=== PATIENT | female | born 1965 | race Caucasian/White ===

== ENCOUNTER 2016-05-19 16:53 | Observation (INO) | payer OTHER ==
[~2016-05-19] VITALS: Ht 170.2 cm; Wt 56.4 kg
[~2016-05-19 16:53] MED LIST: ATEN-100 PO; FIORIC PO; PROM25TA5 PO
[2016-05-19 17:00] VITALS: BP 138/92; PULSE 54; RESP 16; TEMP 98.8; O2SAT 97
[2016-05-19] MEDS ORDERED: SODIUM CHLOR 0.9% 1000 ML INJ 1,000 ML IV ONE (17:15)
[2016-05-19] MEDS ORDERED: SODIUM CHLORIDE 0.9% FLUSH 5 ML FLUSH IVF PRN (17:15)
[2016-05-19] MEDS ORDERED: ATEN25TA PO (17:26)
--- NOTE | 2016-05-19 17:28 | PD ---
HPI Chief Complaint: Numbness/Tingling Time Seen by Provider: 17:04 Travel History International Travel<30 days: No Contact w/Intl Traveler<30days: No History of Present Illness HPI Patient is a 51-year-old female who presents to emergency room with complaints of tingling sensation and numbness to her left upper extremity. Reports that onset of symptoms was 2 hours prior to arrival to the emergency room. Patient reports that she was riding her bicycle today, reports that the sudden she felt lightheaded and dizzy. Reports that she began to have increased tingling and numbness to her left arm. Reports that she felt these symptoms go into her neck as well. Reports concern that she may be having a stroke. Patient reports that upon arrival to the emergency room, symptoms have improved and has almost nearly resolved. Reports no history of CVA, TIA in the past. Denies history of hypertension, hyperlipidemia or diabetes. Reports that she does have history of a complicated migraine which he her tingling to her right upper extremity in the past. patient denies fall or trauma to the head or neck. Patient denies chest pain or shortness of breath at this time. PFSH Past Medical History Cardiovascular Problems: Yes (IRREGULAR HEART RATE SPORADICALLY) Diminished Hearing: No Headaches: Yes Past Surgical History Surgical History: No Previous Surgery Family History Family History: Negative Social History Alcohol Use: No Tobacco Use: No Substance Use: No Allergies-Medications (Allergen,Severity, Reaction): Coded Allergies: No Known Allergies (Unverified , 05/19/16) Reported Meds & Prescriptions Reported Meds & Active Scripts Active Reported Atenolol 25 Mg Tab 25 Mg PO DAILY Review of Systems General / Constitutional: No: Fever Eyes: No: Visual changes HENT: No: Headaches Cardiovascular: No: Chest Pain or Discomfort Respiratory: No: Shortness of Breath Gastrointestinal: No: Abdominal Pain Genitourinary: No: Dysuria Musculoskeletal: No: Pain Skin: No Rash Neurologic: Positive: Weakness, Paresthesia Psychiatric: No: Depression Endocrine: No: Polydipsia Hematologic/Lymphatic: No: Easy Bruising Physical Exam Narrative GENERAL: nad,nontoxic SKIN: Warm and dry. HEAD: Atraumatic. Normocephalic. EYES: Pupils equal and round. No scleral icterus. No injection or drainage. ENT: No nasal bleeding or discharge. Mucous membranes pink and moist. NECK: Trachea midline. No JVD. CARDIOVASCULAR: Regular rate and rhythm. No murmur appreciated. RESPIRATORY: No accessory muscle use. Clear to auscultation. Breath sounds equal bilaterally. GASTROINTESTINAL: Abdomen soft, non-tender, nondistended. Hepatic and splenic margins not palpable. MUSCULOSKELETAL: No obvious deformities. No clubbing. No cyanosis. No edema. NEUROLOGICAL: Awake and alert. No obvious cranial nerve deficits. Motor grossly within normal limits. Normal speech. Cranial nerves to 1-12 grossly intact with no neurovascular deficits. PSYCHIATRIC: Appropriate mood and affect; insight and judgment normal. Data Data Last Documented VS Vital Signs Date Time Temp Pulse Resp B/P Pulse Ox O2 Delivery O2 Flow Rate FiO2 05/19/16 17:57 52 16 167/72 98 Room Air 05/19/16 17:00 98.8 Orders Prothrombin Time / Inr (Pt) (05/19/16 17:05) Act Partial Throm Time (Ptt) (05/19/16 17:05) Complete Blood Count With Diff (05/19/16 17:05) Comprehensive Metabolic Panel (05/19/16 17:05) Creatine Kinase (Cpk) (05/19/16 17:05) Troponin I (05/19/16 17:05) Urinalysis - C+S If Indicated (05/19/16 17:05) Ct Brain W/O Iv Contrast(Rout) (05/19/16 17:05) Chest, Single Ap (05/19/16 17:05) Ecg Monitoring (05/19/16 17:05) Iv Access Insert/Monitor (05/19/16 17:05) Oximetry (05/19/16 17:05) Sodium Chloride 0.9% Flush (Ns Flush) (05/19/16 17:15) Sodium Chlor 0.9% 1000 Ml Inj (Ns 1000 M (05/19/16 17:15) Aspirin (Aspirin) (05/19/16 18:30) Labs Laboratory Tests Test 05/19/16 17:25 White Blood Count 10.6 TH/MM3 Red Blood Count 6.00 MIL/MM3 Hemoglobin 16.7 GM/DL Hematocrit 51.9 % Mean Corpuscular Volume 86.5 FL Mean Corpuscular Hemoglobin 27.9 PG Mean Corpuscular Hemoglobin 32.2 % Concent Red Cell Distribution Width 13.9 % Platelet Count 227 TH/MM3 Mean Platelet Volume 7.2 FL Neutrophils (%) (Auto) 89.0 % Lymphocytes (%) (Auto) 6.9 % Monocytes (%) (Auto) 1.5 % Eosinophils (%) (Auto) 0.3 % Basophils (%) (Auto) 2.3 % Neutrophils # (Auto) 9.5 TH/MM3 Lymphocytes # (Auto) 0.7 TH/MM3 Monocytes # (Auto) 0.2 TH/MM3 Eosinophils # (Auto) 0.0 TH/MM3 Basophils # (Auto) 0.2 TH/MM3 CBC Comment DIFF FINAL Differential Comment Prothrombin Time 11.1 SEC Prothromb Time International 1.0 RATIO Ratio Activated Partial 30.0 SEC Thromboplast Time Urine Color YELLOW Urine Turbidity CLEAR Urine pH 6.0 Urine Specific [place] 1.013 Urine Protein NEG mg/dL Urine Glucose (UA) NEG mg/dL Urine Ketones NEG mg/dL Urine Occult Blood MOD Urine Nitrite NEG Urine Bilirubin NEG Urine Leukocyte Esterase NEG Urine RBC 4-9 /hpf Urine Squamous Epithelial 0-5 /hpf Cells Urine Mucus OCC /lpf Microscopic Urinalysis Comment CULT NOT INDICATED Sodium Level 134 MEQ/L Potassium Level 3.7 MEQ/L Chloride Level 100 MEQ/L Carbon Dioxide Level 27.1 MEQ/L Anion Gap 7 MEQ/L Blood Urea Nitrogen 10 MG/DL Creatinine 0.96 MG/DL Estimat Glomerular Filtration 61 ML/MIN Rate Random Glucose 89 MG/DL Calcium Level 8.8 MG/DL Total Bilirubin 0.6 MG/DL Aspartate Amino Transf 20 U/L (AST/SGOT) Alanine Aminotransferase 22 U/L (ALT/SGPT) Alkaline Phosphatase 92 U/L Total Creatine Kinase 65 U/L Troponin I LESS THAN 0.02 NG/ML Total Protein 7.8 GM/DL Albumin 4.2 GM/DL [facility] Medical Decision Making Medical Screen Exam Complete: Yes Emergency Medical Condition: Yes Interpretation(s) EKG at 1655: sinus sim at 54bpm, qt/qtc: 442/432, no acute st or t wave changes Differential Diagnosis CVA, TIA, arrhythmia, ACS, electrolyte abnormality Narrative Course Patient is a 51-year-old female who presents to emergency room with complaints of numbness continuous her left arm which started 2 hours prior to arrival to the emergency room. Patient reports that she was riding her bike when her symptoms began. She with no history of CVA or TIA in the past. Upon presentation to the emergency room, EKG obtained, patient was placed on a general ii farmworker, and NIH scale obtained. Patient with NIH scale of 0. Patient with rapidly resolving symptoms at this time. Plan to obtain ct of head and work patient up for possible TIA. Physician Communication Physician Communication case reviewed with Dr Barnes who accepts pt to service Diagnosis Primary Impression: TIA (transient ischemic attack) Qualified Code: G45.9 - Transient cerebral ischemia, unspecified type Admitting Information Admitting Physician Requests: Observation Malina Rodriguez DO May 19, 2016 17:28
--- NOTE | 2016-05-19 17:30 | RADHPO ---
EXAM DATE/TIME: 05/19/2016 17:18 [facility] COMPARISON: No previous studies available for comparison. INDICATIONS : Syncope with chest pains. MEDICAL HISTORY : Irregular heart beat. SURGICAL HISTORY : None. ENCOUNTER: Initial ACUITY: 1 day PAIN SCORE: 0/10 LOCATION: Bilateral chest FINDINGS: The cardiac silhouette is enlarged in transverse diameter. The lungs are free of acute parenchymal op acity. No effusions are identified. Osseous structures are intact. CONCLUSION: Cardiomegaly. No acute cardiopulmonary disease. Loc Hermosillo MD on May 19, 2016 at 17:29 Board Certified Radiologist. This report was verified electronically.
[2016-05-19 17:39] VITALS: RESP 16; O2SAT 100
[2016-05-19 17:44] LABS: AUTOMATED NEUTROPHIL # 9.5 TH/MM3 (1.8-7.7); BASOPHIL # 0.2 TH/MM3 (0-0.2); BASOPHIL % 2.3 % (0.0-2.0); EOSINOPHIL % 0.3 % (0.0-4.0); GLUCOSE,URINE NEG (NEG); HEMATOCRIT 51.9 % (35.0-46.0); HEMO FLAGS DIFF FINAL; KETONE, URINE NEG (NEG); LYMPH % 6.9 % (9.0-44.0); LYMPHOCYTE # 0.7 TH/MM3 (1.0-4.8); MEAN CELL VOLUME 86.5 FL (80.0-100.0); MEAN CORPUSCULAR HEMOGLOBIN 27.9 PG (27.0-34.0); MEAN CORPUSCULAR HGB CONC 32.2 % (32.0-36.0); MONO % 1.5 % (0.0-8.0); NITRITE,URINE NEG (NEG); PLATELET COUNT 227 TH/MM3 (150-450); RED CELL DISTRIBUTION WIDTH 13.9 % (11.6-17.2); WHITE BLOOD COUNT 10.6 TH/MM3 (4.0-11.0)
[2016-05-19 17:50] LABS: CHLORIDE 100 MEQ/L (98-107); POTASSIUM 3.7 MEQ/L (3.5-5.1); SODIUM (NA) 134 MEQ/L (136-145)
[2016-05-19 17:54] LABS: ANION GAP 7 MEQ/L (5-15); BICARBONATE 27.1 MEQ/L (21.0-32.0); BLOOD UREA NITROGEN 10 MG/DL (7-18)
[2016-05-19 17:55] LABS: BLOOD, URINE MOD (NEG)
[2016-05-19 17:56] LABS: PROTHROMBIN TIME - PATIENT 11.1 SEC (9.8-11.6)
--- NOTE | 2016-05-19 17:56 | RADHPO ---
EXAM DATE/TIME: 05/19/2016 17:38 [facility] COMPARISON: CT BRAIN W/O CONTRAST, October 30, 2014, 17:35. INDICATIONS : Evaluate for tranischemic attack. Tingling left arm. RADIATION DOSE: 60.00 CTDIvol (mGy) MEDICAL HISTORY : None SURGICAL HISTORY : None. ENCOUNTER: Initial ACUITY: 1 day PAIN SCALE: 0/10 LOCATION: cranial TECHNIQUE: Multiple contiguous axial images were obtained of the head. Using automated exposure control and adj ustment of the mA and/or kV according to patient size, radiation dose was kept as low as reasonably a chievable to obtain optimal diagnostic quality images. FINDINGS: CEREBRUM: The ventricles are normal for age. No evidence of midline shift, mass lesion, hemorrhage or acute in farction. No extra-axial fluid collections are seen. POSTERIOR FOSSA: The cerebellum and brainstem are intact. The 4th ventricle is midline. The cerebellopontine angle i s unremarkable. EXTRACRANIAL: The visualized portion of the orbits is intact. SKULL: The calvaria is intact. No evidence of skull fracture. CONCLUSION: 1. No evidence of acute intracranial pathology. No masses are identified. Loc Hermosillo MD on May 19, 2016 at 17:54 Board Certified Radiologist. This report was verified electronically.
[2016-05-19 17:57] VITALS: BP 167/72; PULSE 52; RESP 16; O2SAT 98
[2016-05-19 17:57] LABS: ALT (GPT) 22 U/L (10-53); AST (GOT) 20 U/L (15-37); GLOMERULAR FILTRATION RATE 61 ML/MIN (>89)
[2016-05-19 17:59] LABS: TOTAL BILIRUBIN ADULT 0.6 MG/DL (0.2-1.0)
[2016-05-19 18:00] LABS: ALKALINE PHOSPHATASE 92 U/L (45-117)
[2016-05-19 18:07] LABS: URINE COLOR YELLOW (YELLW/STRAW)
[2016-05-19 18:09] LABS: CREATINE KINASE 65 U/L (26-192); MUCUS URINE OCC /lpf (OCC); SQUAMOUS EPITHELIAL CELL URINE 0-5 /hpf (0-5)
[2016-05-19 18:10] LABS: COMMENT (UR) CULT NOT INDICATED; CULTURE IF INDICATED CULT NOT INDICATED
[2016-05-19] MEDS ORDERED: ASPIRIN 325 MG TAB PO ONE (18:30)
[2016-05-19] MEDS ORDERED: ONDANSETRON HCL 4 MG/2 ML VIAL IVP PRN (18:45)
[2016-05-19] MEDS ORDERED: SODIUM CHLORIDE 0.9% FLUSH 5 ML FLUSH FLUSH PRN (18:45)
[2016-05-19] MEDS ORDERED: ACETAMINOPHEN 325 MG TAB PO PRN (18:45)
[2016-05-19 20:14] VITALS: BP 157/73; PULSE 52; RESP 16; O2SAT 97
[2016-05-19 21:00] VITALS: BP 160/88; PULSE 54; RESP 20; TEMP 99.1; O2SAT 98
[2016-05-19] MEDS: SODIUM CHLORIDE 0.9% FLUSH 5 ML FLUSH FLUSH SCH (21:17)
[2016-05-20] VITALS: BP 168/88; PULSE 59; RESP 20; TEMP 98.5; O2SAT 98
[2016-05-20 04:00] VITALS: BP 160/96; PULSE 56; RESP 20; TEMP 96.8; O2SAT 98
[2016-05-20 08:00] VITALS: BP 159/90; PULSE 61; RESP 18; TEMP 98.1; O2SAT 95
[2016-05-20] MEDS: SODIUM CHLORIDE 0.9% FLUSH 5 ML FLUSH FLUSH SCH (09:09)
--- NOTE | 2016-05-20 09:56 | RADHPO ---
EXAM DATE/TIME: 05/20/2016 07:41 [facility] COMPARISON: No previous studies available for comparison. INDICATIONS : Transient ischemic attack. MEDICAL HISTORY : Headache. Arrhythmia. SURGICAL HISTORY : None. ENCOUNTER: Initial ACUITY: 1 day PAIN SCORE: 0/10 LOCATION: Bilateral neck PEAK SYSTOLIC VELOCITIES (cm/sec): ICA/CCA RATIO: Right: 1.8 Left: 1.2 ICA: Right: 112 Left: 72 CCA: Right: 63 Left: 60 ECA: Right: 62 Left: 66 VERTEBRAL: Right: 43 antegrade Left: 43 antegrade Elevated flow velocities and ICA/CCA ratios have been found to correlate with increased degrees of vessel stenosis, calculated as percentage of diameter relative to a normal segment of distal ICA/CCA FINDINGS: RIGHT CAROTID: There is no evidence for a hemodynamically significant carotid stenosis. Minimal int imal hyperplasia is present with scattered calcific plaque. LEFT CAROTID: There is no evidence for a hemodynamically significant carotid stenosis. Minimal inti mal hyperplasia is present with scattered calcific plaque. VERTEBRAL ARTERIES: Flow is antegrade in both vertebral arteries. MISCELLANEOUS: There are no ancillary masses or adenopathy. CONCLUSION: Negative examination for a hemodynamically significant carotid stenosis. Marvin Brandt MD FACR Board Certified Radiologist. This report was verified electronically.
[2016-05-20] MEDS ORDERED: ATENOLOL 25 MG TAB PO SCH (10:00)
[2016-05-20 12:00] VITALS: BP 164/91; PULSE 50; RESP 18; TEMP 98.9; O2SAT 96
--- NOTE | 2016-05-20 13:44 | RADHPO ---
EXAM DATE/TIME: 05/20/2016 12:57 [facility] COMPARISON: No previous studies available for comparison. INDICATIONS : TIA. Dizziness, tingling sensation and numbness to left upper extremity. MEDICAL HISTORY : Irregular heartbeat. SURGICAL HISTORY : None. ENCOUNTER: Subsequent ACUITY: 2 day PAIN SCORE: 0/10 LOCATION: cranial TECHNIQUE: Multiplanar, multisequence MRI of the brain was performed without contrast. FINDINGS: Moderate periventricular white matter changes are evident. There is no restricted diffusion to suggest an infarct. There are no extraaxial fluid collections appreciated. Posterior fossa is unremarkable. Ventricular sizes are appropriate. CONCLUSION: 1. Marked periventricular white matter changes. 2. There is no restricted diffusion to suggest an ischemic event. Marvin Brandt MD FACR on May 20, 2016 at 13:37 Board Certified Radiologist. This report was verified electronically.
[2016-05-20] MEDS ORDERED: LISINOPRIL 10 MG TAB PO SCH (14:00)
[2016-05-20] MEDS ORDERED: LISI10TA3 PO (14:03)
--- NOTE | 2016-05-20 14:16 | HHI.DCPOC ---
Discharge Care Plan Diagnosis: (1) Neurologic abnormality Goals to Promote Your Health * To prevent worsening of your condition and complications * To maintain your health at the optimal level Directions to Meet Your Goals Take your medications as prescribed Follow your dietary instruction Follow activity as directed Keep your appointments as scheduled Take your immunizations and boosters as scheduled If your symptoms worsen call your PCP, if no PCP go to Urgent Care Center or Emergency Room Smoking is Dangerous to Your Health. Avoid second hand smoke Call the 24-hour hour crisis hotline for domestic abuse at Lorraine Barnes MD May 20, 2016 14:16
--- NOTE | 2016-05-20 14:16 | HHI.HP ---
[facility] [place] Primary Care Physician No Primary Care Physician Admission Diagnosis TIA Diagnoses: Chief Complaint: Numbness and tingling Travel History International Travel<30 Days: No Contact w/Intl Traveler <30 Da: No Traveled to Known Affected Are: No History of Present Illness Patient is a 51-year-old female who is very active and rides her bike 2-3 miles a day as well as walks. Yesterday she came to the emergency room after experiencing acute onset of left arm numbness and paresthesias. This resolved quite quickly however patient was concerned that she was having a stroke and came to the hospital. Since her admission she has had multiple imaging studies which are negative for any acute stroke. She does have ever had a history of migraines and thought she may have been having a migraine attack. Patient notes that she takes Excedrin at times for her migraines and has typical aura. This event was not associated with aura but resolved with Excedrin at home. Patient also has elevated blood pressure. She does take atenolol however this is been for palpitations in the past. Her blood pressure has been elevated here and lisinopril was added to her atenolol. Patient has been doing well and her symptoms are resolved. There is no evidence of infarct the patient will be discharged home Review of Systems Constitutional: DENIES: Diaphoretic episodes, Fatigue, Fever, Weight gain, Weight loss, Chills, Dizziness, Change in appetite, Night Sweats Endocrine: DENIES: Abnorml menstrual pattern, Heat/cold intolerance, Polydipsia , Polyuria, Polyphagia Eyes: DENIES: Blurred vision, Diplopia, Eye inflammation, Eye pain, Vision loss , Photosensitivity, Double Vision Ears, nose, mouth, throat: DENIES: Tinnitus, Hearing loss, Vertigo, Nasal discharge, Oral lesions, Throat pain, Hoarseness, Ear Pain, Running Nose, Epistaxis, Sinus Pain, Toothache, Odynophagia Respiratory: DENIES: Apneas, Cough, Snoring, Wheezing, Hemoptysis, Sputum production, Shortness of breath Cardiovascular: DENIES: Chest pain, Palpitations, Syncope, Dyspnea on Exertion , PND, Lower Extremity Edema, Orthopnea, Claudication Gastrointestinal: DENIES: Abdominal pain, Black stools, Bloody stools, Constipation, Diarrhea, Nausea, Vomiting, Difficulty Swallowing, Anorexia Genitourinary: DENIES: Abnormal vaginal bleeding, Dysmenorrhea, Dyspareunia, Sexual dysfunction, Urinary frequency, Urinary incontinence, Urgency, Hematuria , Dysuria, Nocturia, Vaginal discharge Musculoskeletal: DENIES: Joint pain, Muscle aches, Stiffness, Joint Swelling, Back pain, Neck pain Integumentary: DENIES: Abnormal pigmentation, Pruritus, Rash, Nail changes, Breast masses, Breast skin changes, Nipple discharge Hematologic/lymphatic: DENIES: Bruising, Lymphadenopathy Immunologic/allergic: DENIES: Eczema, Urticaria Neurologic: COMPLAINS OF: Paresthesias, DENIES: Abnormal gait, Headache, Localized weakness, Seizures, Speech Problems, Tremor, Poor Balance Psychiatric: DENIES: Anxiety, Confusion, Mood changes, Depression, Hallucinations, Agitation, Suicidal Ideation, Homicidal Ideation, Delusions Past Family Social History Past Medical History palpations migraines Past Surgical History none Reported Medications atenolol Allergies: Coded Allergies: No Known Allergies (Unverified , 05/19/16) Active Ordered Medications Reviewed in the medical record Family History Mother at 39 from COPD, father had hypertension and from motor vehicle accident Social History No tobacco or alcohol Lives with her family Physical Exam Vital Signs Vital Signs Date Time Temp Pulse Resp B/P Pulse Ox O2 Delivery O2 Flow Rate FiO2 05/20/16 08:00 98.1 61 18 159/90 95 05/20/16 04:00 96.8 56 20 160/96 98 05/20/16 00:00 98.5 59 20 168/88 98 Automatic Cuff 05/19/16 21:00 99.1 54 20 160/88 98 05/19/16 20:14 52 16 157/73 97 Room Air 05/19/16 17:57 52 16 167/72 98 Room Air 05/19/16 17:39 16 100 Room Air 05/19/16 17:00 98.8 54 16 138/92 97 Physical Exam GENERAL: This is a well-nourished, well-developed patient, in no apparent distress. SKIN: No rashes, ecchymoses or lesions. Cool and dry. HEAD: Atraumatic. Normocephalic. No temporal or scalp tenderness. EYES: Pupils equal round and reactive. Extraocular motions intact. No scleral icterus. No injection or drainage. ENT: Nose without bleeding, purulent drainage or septal hematoma. Throat without erythema, tonsillar hypertrophy or exudate. Uvula midline. Airway patent. NECK: Trachea midline. No JVD or lymphadenopathy. Supple, nontender, no meningeal signs. CARDIOVASCULAR: Regular rate and rhythm without murmurs, gallops, or rubs. RESPIRATORY: Clear to auscultation. Breath sounds equal bilaterally. No wheezes , rales, or rhonchi. GASTROINTESTINAL: Abdomen soft, non-tender, nondistended. No hepato-splenomegaly , or palpable masses. No guarding. MUSCULOSKELETAL: Extremities without clubbing, cyanosis, or edema. No joint tenderness, effusion, or edema noted. No calf tenderness. Negative Homans sign bilaterally. NEUROLOGICAL: Awake and alert. Cranial nerves II through XII intact. Motor and sensory grossly within normal limits. Five out of 5 muscle strength in all muscle groups. Normal speech. Laboratory Laboratory Tests Test 05/19/16 17:25 White Blood Count 10.6 Red Blood Count 6.00 Hemoglobin 16.7 Hematocrit 51.9 Mean Corpuscular Volume 86.5 Mean Corpuscular Hemoglobin 27.9 Mean Corpuscular Hemoglobin 32.2 Concent Red Cell Distribution Width 13.9 Platelet Count 227 Mean Platelet Volume 7.2 Neutrophils (%) (Auto) 89.0 Lymphocytes (%) (Auto) 6.9 Monocytes (%) (Auto) 1.5 Eosinophils (%) (Auto) 0.3 Basophils (%) (Auto) 2.3 Neutrophils # (Auto) 9.5 Lymphocytes # (Auto) 0.7 Monocytes # (Auto) 0.2 Eosinophils # (Auto) 0.0 Basophils # (Auto) 0.2 CBC Comment DIFF FINAL Differential Comment Prothrombin Time 11.1 Prothromb Time International 1.0 Ratio Activated Partial 30.0 Thromboplast Time Urine Color YELLOW Urine Turbidity CLEAR Urine pH 6.0 Urine Specific [place] 1.013 Urine Protein NEG Urine Glucose (UA) NEG Urine Ketones NEG Urine Occult Blood MOD Urine Nitrite NEG Urine Bilirubin NEG Urine Leukocyte Esterase NEG Urine RBC 4-9 Urine Squamous Epithelial 0-5 Cells Urine Mucus OCC Microscopic Urinalysis Comment CULT NOT INDICATED Sodium Level 134 Potassium Level 3.7 Chloride Level 100 Carbon Dioxide Level 27.1 Anion Gap 7 Blood Urea Nitrogen 10 Creatinine 0.96 Estimat Glomerular Filtration 61 Rate Random Glucose 89 Calcium Level 8.8 Total Bilirubin 0.6 Aspartate Amino Transf 20 (AST/SGOT) Alanine Aminotransferase 22 (ALT/SGPT) Alkaline Phosphatase 92 Total Creatine Kinase 65 Troponin I LESS THAN 0.02 Total Protein 7.8 Albumin 4.2 Result Diagram: 05/19/16 1725 05/19/16 172 Imaging mri no acute findings on my review; no cva Last Impressions Carotid Artery Ultrasound 05/20/162003 Signed Impressions: Service Date/Time: Friday, May 20, 2016 07:41 - CONCLUSION: Negative examination for a hemodynamically significant carotid stenosis. Marvin Brandt MD Head CT 05/19/161704 Signed Impressions: Service Date/Time: May 17:38 - CONCLUSION: 1. No evidence of acute intracranial pathology. No masses are identified. Loc Hermosillo MD Chest X-Ray 05/19/[id number] Signed Impressions: Service Date/Time: May 17:18 - CONCLUSION: Cardiomegaly. No acute cardiopulmonary disease. Loc Hermosillo MD Assessment and Plan Problem List: (1) TIA (transient ischemic attack) ICD Code: G45.9 Status: Acute Plan: No evidence of CVA Images negative No new issues May be related to HTN, Assessment and Plan Discharge home Activity unrestricted Diet heart healthy Discussed Condition With Patient, ER [facility] Problem Qualifiers (1) TIA (transient ischemic attack): Qualified Code: G45.9 - Transient cerebral ischemia, unspecified type Lorraine Barnes MD May 20, 2016 14:16
--- NOTE | 2016-05-20 20:49 | EKG ---
Date Performed: 05/19/2016 Time Performed: 16:55:18 PTAGE: 51 years EKG: Sinus bradycardia rSr'(V1) - probable normal variant ST junctional depression is nonspecifi c Since previous tracing, no significant change noted Borderline ECG PREVIOUS TRACING : 10/30/2014 16.43 DOCTOR: Zev Su Interpretating Date/Time 05/20/2016 20:49:09
== END 2016-05-20 16:19 | disposition home or self-care (01) ==
LOC: PHEFT 16:53 → PHEDA 18:34 → PH3B 20:49
PROVIDERS: ADMIT Hospitalist; ATTEND Hospitalist
DX: G45.9 Transient cerebral ischemic attack, unspecified (principal); R20.2 Paresthesia of skin; R42 Dizziness and giddiness; G43.109 Migraine with aura, not intractable, without status migrainosus; I49.9 Cardiac arrhythmia, unspecified; R03.0 Elevated blood-pressure reading, without diagnosis of hypertension; R00.2 Palpitations; I51.7 Cardiomegaly
CPT/HCPCS: 70450; 70551; 71010; 80053; 81001; 82550; 84484; 85025; 85610; 85730; 93005; 93880; 96360; 99285; G0378; J7030

== ENCOUNTER 2016-11-05 18:29 | Inpatient (IN) | payer OTHER ==
[~2016-11-05] VITALS: Ht 157.5 cm; Wt 55.5 kg
[~2016-11-05 18:29] MED LIST changes: -ATEN-100 PO; +ATEN25TA PO; -FIORIC PO; +LISI10TA3 PO; -PROM25TA5 PO
[2016-11-05 18:30] VITALS: BP 146/86; PULSE 91; RESP 16; TEMP 98.1; O2SAT 99
[2016-11-05] MEDS ORDERED: SODIUM CHLORIDE 0.9% FLUSH 10 ML FLUSH IVF PRN (19:00)
[2016-11-05] MEDS ORDERED: ASPIRIN 81 MG CHEW TAB PO ONE (19:00)
[2016-11-05 19:17] LABS: AUTOMATED NEUTROPHIL # 5.6 TH/MM3 (1.8-7.7); BASOPHIL # 0.3 TH/MM3 (0-0.2); BASOPHIL % 4.4 % (0.0-2.0); EOSINOPHIL # 0.2 TH/MM3 (0-0.4); EOSINOPHIL % 2.6 % (0.0-4.0); HEMATOCRIT 47.6 % (35.0-46.0); HEMO FLAGS DIFF FINAL; LYMPH % 12.9 % (9.0-44.0); LYMPHOCYTE # 0.9 TH/MM3 (1.0-4.8); MEAN CELL VOLUME 88.3 FL (80.0-100.0); MEAN CORPUSCULAR HEMOGLOBIN 29.1 PG (27.0-34.0); MEAN CORPUSCULAR HGB CONC 32.9 % (32.0-36.0); MONO % 3.7 % (0.0-8.0); NEUT % 76.4 % (16.0-70.0); PLATELET COUNT 210 TH/MM3 (150-450); RED BLOOD COUNT 5.39 MIL/MM3 (4.00-5.30); RED CELL DISTRIBUTION WIDTH 12.1 % (11.6-17.2); WHITE BLOOD COUNT 7.3 TH/MM3 (4.0-11.0)
--- NOTE | 2016-11-05 19:27 | RADRPT ---
EXAM DATE/TIME: 11/05/2016 18:59 [facility] COMPARISON: No previous studies available for comparison. INDICATIONS : Heart palpitations. MEDICAL HISTORY : Irregular heart beat. SURGICAL HISTORY : ENCOUNTER: Initial ACUITY: 1 day PAIN SCORE: 0/10 LOCATION: Bilateral chest FINDINGS: PA and lateral views of the chest demonstrate the lungs to be symmetrically aerated without evidence of mass, infiltrate or effusion. The cardiomediastinal contours are unremarkable. Osseous structure s are intact. CONCLUSION: No acute cardiopulmonary disease. Hipolito Roblero MD on November 05, 2016 at 19:25 Board Certified Radiologist. This report was verified electronically.
[2016-11-05 19:28] LABS: CHLORIDE 94 MEQ/L (98-107); POTASSIUM 3.6 MEQ/L (3.5-5.1); SODIUM (NA) 128 MEQ/L (136-145)
[2016-11-05 19:33] LABS: ANION GAP 11 MEQ/L (5-15); BICARBONATE 23.2 MEQ/L (21.0-32.0); BLOOD UREA NITROGEN 11 MG/DL (7-18); MAGNESIUM 1.9 MG/DL (1.5-2.5)
[2016-11-05 19:34] LABS: PROTHROMBIN TIME - PATIENT 11.3 SEC (9.8-11.6)
[2016-11-05 19:35] LABS: ALT (GPT) 23 U/L (10-53); AST (GOT) 27 U/L (15-37); GLOMERULAR FILTRATION RATE 65 ML/MIN (>89)
[2016-11-05 19:37] LABS: TOTAL BILIRUBIN ADULT 0.8 MG/DL (0.2-1.0)
[2016-11-05 19:38] LABS: ALKALINE PHOSPHATASE 93 U/L (45-117)
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
[2016-11-05 19:55] VITALS: BP 142/82; PULSE 51; RESP 18; O2SAT 98
[2016-11-05] MEDS ORDERED: ACETAMINOPHEN 325 MG TAB PO PRN (20:00)
[2016-11-05] MEDS ORDERED: LACTULOSE SYRUP 20 GM/30 ML CUP PO PRN (20:00)
[2016-11-05] MEDS ORDERED: BISACODYL 10 MG SUPP RECTAL PRN (20:00)
[2016-11-05] MEDS ORDERED: ACETAMINOPHEN/HYDROcodone 325 MG/7.5 MG TAB PO PRN (20:00)
[2016-11-05] MEDS ORDERED: SODIUM CHLORIDE 0.9% FLUSH 10 ML FLUSH IV FLUSH PRN (20:00)
[2016-11-05] MEDS ORDERED: ONDANSETRON HCL 4 MG/2 ML VIAL IVP PRN (20:00)
[2016-11-05] MEDS ORDERED: ACETAMINOPHEN/HYDROcodone 325 MG/5 MG TAB PO PRN (20:00)
[2016-11-05] MEDS ORDERED: MAGNESIUM HYDROXIDE SUSP 30 ML CUP PO PRN (20:00)
[2016-11-05] MEDS ORDERED: SENNOSIDES 8.6 MG TAB PO PRN (20:00)
[2016-11-05 20:03] VITALS: BP_SYST 140; BP_SYST 142; BP_DIAS 78; BP_DIAS 82; PULSE 51; RESP 18; O2SAT 98
[2016-11-05] MEDS: SODIUM CHLOR 0.9% 1000 ML INJ 1,000 ML IV SCH (20:22)
[2016-11-05] MEDS: SODIUM CHLORIDE 0.9% FLUSH 10 ML FLUSH IV FLUSH SCH (20:23)
[2016-11-05] MEDS: DOCUSATE SODIUM 50 MG/SENNA 8.6 MG TAB PO SCH (21:00)
[2016-11-05 22:53] VITALS: BP 140/80; PULSE 50; RESP 18; O2SAT 98
[2016-11-06] VITALS (18 sets, daily range): BP systolic 110–149; BP diastolic 60–87; PULSE 45–80; RESP 16–20; TEMP 98.4–99.4; O2SAT 96–99
[2016-11-06 06:34] LABS: AUTOMATED NEUTROPHIL # 6.9 TH/MM3 (1.8-7.7); BASOPHIL # 0.3 TH/MM3 (0-0.2); BASOPHIL % 3.5 % (0.0-2.0); EOSINOPHIL % 0.4 % (0.0-4.0); LYMPH % 12.4 % (9.0-44.0); LYMPHOCYTE # 1.1 TH/MM3 (1.0-4.8); MEAN CELL VOLUME 87.5 FL (80.0-100.0); MEAN CORPUSCULAR HEMOGLOBIN 29.9 PG (27.0-34.0); MEAN CORPUSCULAR HGB CONC 34.2 % (32.0-36.0); MONO % 3.7 % (0.0-8.0); PLATELET COUNT 205 TH/MM3 (150-450); RED CELL DISTRIBUTION WIDTH 11.6 % (11.6-17.2); WHITE BLOOD COUNT 8.6 TH/MM3 (4.0-11.0)
[2016-11-06 06:40] LABS: HEMO FLAGS DIFF FINAL
[2016-11-06 07:10] LABS: ALKALINE PHOSPHATASE 79 U/L (45-117); ALT (GPT) 20 U/L (10-53); ANION GAP 9 MEQ/L (5-15); AST (GOT) 27 U/L (15-37); BLOOD UREA NITROGEN 9 MG/DL (7-18); CHLORIDE 98 MEQ/L (98-107); GLOMERULAR FILTRATION RATE 91 ML/MIN (>89); POTASSIUM 4.5 MEQ/L (3.5-5.1); SODIUM (NA) 130 MEQ/L (136-145); TOTAL BILIRUBIN ADULT 0.8 MG/DL (0.2-1.0)
[2016-11-06] MEDS: SODIUM CHLOR 0.9% 1000 ML INJ 1,000 ML IV SCH ×2 (07:36→15:27)
[2016-11-06] MEDS ORDERED: HEPARIN-D5W INJ 250 ML IV SCH (08:30)
[2016-11-06] MEDS ORDERED: HEPARIN SODIUM - IV 10,000 UNITS/10 ML VIAL IV ONE (08:30)
[2016-11-06] MEDS: SODIUM CHLORIDE 0.9% FLUSH 10 ML FLUSH IV FLUSH SCH ×2 (09:00→21:00)
[2016-11-06] MEDS ORDERED: LISINOPRIL 10 MG TAB PO SCH (09:00)
[2016-11-06] MEDS: DOCUSATE SODIUM 50 MG/SENNA 8.6 MG TAB PO SCH ×2 (09:00→21:03)
[2016-11-06] MEDS ORDERED: ATENOLOL 25 MG TAB PO SCH (09:00)
--- NOTE | 2016-11-06 09:19 | ECHRPT ---
Indication: endocarditis follow up CONCLUSIONS The indication for this study is A Fib/flutterNormal left ventricular size. Wall thickness is normal. The left ventricular systolic function is normal with an estimated ejection fraction in the range of 55-60%. No regional wall motion abnormalities are present. The left atrial size is upper limits of normal. Moderate mitral valve regurgitation. The aortic valve is not well visualized. Mild aortic valve regurgitation. There is mild tricuspid valve regurgitation. The estimated pulmonary arterial pressure is _38_ mmHg. The pulmonary valve is not well visualized. The inferior vena cava was not well visualized. BP: / HR: Rhythm: MEASUREMENTS (Male / Female) Normal Values Technical Quality:Adequate 2D ECHO LV Diastolic Diameter PLAX 4.7 cm 4.2 - 5.9 / 3.9 - 5.3 cm LV Systolic Diameter PLAX 3.5 cm IVS Diastolic Thickness 0.9 cm 0.6 - 1.0 / 0.6 - 0.9 cm LVPW Diastolic Thickness 0.9 cm 0.6 - 1.0 / 0.6 - 0.9 cm LV Relative Wall Thickness 0.4 RV Internal Dim ED PLAX 2.8 cm M-MODE Aortic Root Diameter MM 3.5 cm LA Systolic Diameter MM 3.8 cm LA Ao Ratio MM 1.1 AV Cusp Separation MM 2.1 cm DOPPLER AI Peak Velocity 404.0 cm/s AI Peak Gradient 65.3 mmHg AI Pressure Half Time 1141.0 ms Mitral E Point Velocity 40.0 cm/s Mitral A Point Velocity 34.1 cm/s Mitral E to A Ratio 1.2 TR Peak Velocity 286.0 cm/s TR Peak Gradient 32.7 mmHg FINDINGS LEFT VENTRICLE Normal left ventricular size. Wall thickness is normal. The left ventricular systolic function is normal with an estimated ejection fraction in the range of 55-60%. No regional wall motion abnormalities are present. Left ventricular diastolic function parameters are normal. RIGHT VENTRICLE Normal right ventricular size and systolic function. LEFT ATRIUM The left atrial size is upper limits of normal. RIGHT ATRIUM The right atrial size is normal. ATRIAL SEPTUM Normal atrial septal thickness without atrial level shunting by limited color doppler interrogation. AORTA The aortic root and proximal ascending aorta are normal in size on limited imaging. MITRAL VALVE Structurally normal mitral valve. Moderate mitral valve regurgitation. AORTIC VALVE The aortic valve is not well visualized. Mild aortic valve regurgitation. TRICUSPID VALVE Structurally normal tricuspid valve. There is mild tricuspid valve regurgitation. The estimated pulmonary arterial pressure is _38_ mmHg. PULMONARY VALVE The pulmonary valve is not well visualized. VESSELS The inferior vena cava was not well visualized. PERICARDIUM No pericardial effusion. Bhanu Telles MD (Electronically Signed) Final Date:06 November 2016 09:18
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
[2016-11-06] MEDS ORDERED: ATORVASTATIN 20 MG TAB PO SCH (14:00)
[2016-11-06] MEDS ORDERED: PILL SPLITTER OTHER PRN (14:00)
[2016-11-06] MEDS ORDERED: HEPARIN SODIUM - IV 10,000 UNITS/10 ML VIAL IV PRN ×2 (14:30)
--- NOTE | 2016-11-06 16:03 | EKG ---
Date Performed: 11/05/2016 Time Performed: 18:32:42 PTAGE: 51 years EKG: ATRIAL FIBRILLATION DIFFUSED NONSPECIFIC ST-T WAVE CHANGE Since previous tracing, no signif icant change noted, there is a rhythm change from sinus bradycardia to atrial fibrillation. The ST-T changes are new and somewhat prominent. Ischemia should be considered. ABNORMAL ECG PREVIOUS TRACING 05/19/2016 16.55.18 DOCTOR: Zev Su Interpretating Date/Time 11/06/2016 16:02:29
--- NOTE | 2016-11-06 16:05 | EKG ---
Date Performed: 11/05/2016 Time Performed: 19:48:37 PTAGE: 51 years EKG: SINUS BRADYCARDIA MINIMAL ST DEPRESSION BORDERLINE ECG Compared to PREVIOUS TRACING , rhythm has changed from atrial fibrillation to sinus bradycardia. ST-T changes are significantly improved. PREVIOUS TRACIN05/19/2016 16.55 DOCTOR: Zev Su Interpretating Date/Time 11/06/2016 16:03:38
[2016-11-06 16:20] LABS: APTT (PATIENT) 46.5 SEC (24.3-30.1)
[2016-11-06 17:14] LABS: HDL CHOLESTEROL 67.3 MG/DL (40.0-60.0)
[2016-11-06 22:47] LABS: APTT (PATIENT) 41.8 SEC (24.3-30.1)
[2016-11-07] VITALS (27 sets, daily range): BP systolic 110–147; BP diastolic 56–87; PULSE 46–85; RESP 16–18; TEMP 98.3–98.8; O2SAT 96–98
[2016-11-07] MEDS: SODIUM CHLOR 0.9% 1000 ML INJ 1,000 ML IV SCH ×3 (01:55→21:27)
[2016-11-07 06:00] LABS: BICARBONATE 24.8 MEQ/L (21.0-32.0); POTASSIUM 3.7 MEQ/L (3.5-5.1)
[2016-11-07 06:05] LABS: APTT (PATIENT) 48.5 SEC (24.3-30.1)
--- NOTE | 2016-11-07 06:57 | PD.CARD.PN ---
Subjective Subjective Remarks The patient denies chest pain, shortness of breath, GI symptoms, bleeding or neurologic symptoms. Telemetry reveals sinus bradycardia. Objective Medications Reviewed Vital Signs / I&O Vital Signs Date Time Temp Pulse Resp B/P Pulse Ox O2 Delivery O2 Flow Rate FiO2 11/07/16 06:00 48 11/07/16 05:00 55 11/07/16 04:00 49 11/07/16 03:00 98.8 56 18 123/86 98 11/07/16 03:00 46 11/07/16 02:00 46 11/07/16 01:00 48 11/07/16 00:00 53 11/06/16 23:00 62 11/06/16 23:00 99.0 64 18 135/79 98 11/06/16 22:00 60 11/06/16 21:00 80 11/06/16 20:00 64 11/06/16 19:00 99.4 60 18 118/71 97 11/06/16 19:00 63 11/06/16 18:12 74 11/06/16 17:07 51 11/06/16 16:25 55 11/06/16 15:12 62 11/06/16 15:12 98.6 62 16 123/73 98 11/06/16 14:21 51 11/06/16 13:30 51 11/06/16 13:30 98.5 55 16 149/87 97 11/06/16 12:00 55 17 123/68 97 Room Air 11/06/16 11:52 54 98 Room Air 11/06/16 09:55 55 20 141/74 98 Room Air 11/06/16 07:40 98 Room Air 11/06/16 07:40 98 Room Air 11/06/16 07:37 98.4 51 18 111/60 99 Room Air I/O 11/06/16 11/06/16 11/06/16 11/07/16 11/07/16 11/07/16 06:59 14:59 22:59 06:59 14:59 22:59 Intake Total 1000 ml 561 ml 480 ml Output Total 1100 ml 300 ml Balance 1000 ml -539 ml 180 ml Intake Oral 240 ml 480 ml IV Total 1000 ml 321 ml Output Urine Total 1100 ml 300 ml # Voids 1 # Bowel Movements 0 Physical Exam GENERAL: Well-nourished, well-developed patient in no apparent distress. SKIN: Warm and dry. NECK: JVD normal - less than or equal to 5 cm H20. CARDIOVASCULAR: Regular rate and rhythm without murmurs, gallops, or rubs. RESPIRATORY: Normal breath sounds - equal bilaterally. No accessory muscle use. No wheezes, rales or rubs. PERIPHERY: No cyanosis, or edema. Laboratory Laboratory Tests Test 11/06/16 11/06/16 11/06/16 11/07/16 12:27 15:54 22:15 04:55 Troponin I 0.71 NG/ML Activated Partial 46.5 SEC 41.8 SEC 48.5 SEC Thromboplast Time Sodium Level 142 MEQ/L Potassium Level 3.7 MEQ/L Chloride Level 109 MEQ/L Carbon Dioxide Level 24.8 MEQ/L Anion Gap 8 MEQ/L Blood Urea Nitrogen 8 MG/DL Creatinine 0.78 MG/DL Estimat Glomerular Filtration 78 ML/MIN Rate Random Glucose 81 MG/DL Calcium Level 8.5 MG/DL Magnesium Level 2.0 MG/DL Imaging Last 48 hours Impressions Chest X-Ray 11/05/16 3013 Signed Impressions: Service Date/Time: Saturday, November 05, 2016 18:59 - CONCLUSION: No acute cardiopulmonary disease. Hipolito Roblero MD Assessment and Plan Assessment and Plan Problems: Atrial fibrillation with prior history of premature atrial contractions Non-ST elevation [place] Hyperlipidemia Abnormal EKG Moderate mitral and mild aortic insufficiency Financial issues with poor follow-up Recommendations: Low-dose beta blockers and aspirin Statin therapy Anticoagulation Catheterization with possible intervention with my partner ,Dr. Cardozo today. I have spoken with him directly. The risks/benefits/alternatives have been explained and informed consent obtained. I have asked the nurse to get social service involved as the patient does have patient assistance and she will need primary care follow-up and help with medication. All questions have been answered. I will sign off and leave further management to Dr. Cardozo. Bhanu Telles MD Nov 07, 2016 06:57
[2016-11-07] MEDS: ATENOLOL 25 MG TAB PO SCH (08:56)
[2016-11-07] MEDS: SODIUM CHLORIDE 0.9% FLUSH 10 ML FLUSH IV FLUSH SCH ×2 (08:56→21:00)
[2016-11-07] MEDS: DOCUSATE SODIUM 50 MG/SENNA 8.6 MG TAB PO SCH ×2 (08:56→21:00)
[2016-11-07] MEDS: ATORVASTATIN 40 MG TAB PO SCH (08:56)
[2016-11-07] MEDS ORDERED: ASPIRIN EC 81 MG TABEC PO SCH (09:00)
[2016-11-07] MEDS ORDERED: HEPARIN-NS/PF INJ 500 ML ONE (09:54)
[2016-11-07] MEDS ORDERED: HEPARIN SODIUM - IV 10,000 UNITS/10 ML VIAL ONE (09:55)
[2016-11-07] MEDS ORDERED: VERAPAMIL HCL 5 MG/2 ML VIAL ONE (09:55)
[2016-11-07] MEDS ORDERED: MIDAZOLAM HCL 2 MG/2 ML VIAL ONE (09:55)
[2016-11-07] MEDS ORDERED: ONDANSETRON HCL 4 MG/2 ML VIAL IVP PRN (10:45)
--- NOTE | 2016-11-07 10:45 | CATHPROC ---
[employer] HIS Report Study Information Study Number Admission Scheduled Start Study Start [id number] Nov 05 2016 8:02PM 11/07/2016 Nov 07 2016 9:13AM [place] Service Cardiac Catheterization Admit Source Facility Department Emergency department [facility] - Clarifier Operator Helper Physician and Clinical Staff Initial MD Ellis, Arpit Bank Officer Yenifer Chambers RN Recorder Margarita Henriquez RCIS TECH2 Scrub Magnus Covarrubias RCIS(BS) Procedures Performed Procedure Location (Site) Vessel Name Coronary Angiograms LCA Left Coronary Coronary Angiograms RCA Right Coronary L Heart Cath LV Gram-hand inj. LV LV Ventricle Equipment Time [employer] Operator Description Size Mfg Part Number Used/Scraped TRANSDUCER, TRUWAVE [id number] 10:21 [employer] CHAMBERS * Used W/STOCKCOCK *[id number] [id number] *[id number] [id number] *[id number] 10:21 [employer] PACK, CCL CUSTOM * Used *[id number] 10:21 [employer] SUPPORT, ARTERIAL ADULT [id number] Used BAND, RADIAL COMPRESSION TR [id number] 10:33 [employer] MEDICAL 24CM Used SHORT 24 *[id number] 10:21 [employer] WIRE, 3MMJ .035 180CM 180CM Used *[id number] 10:21 NAMIC MANIFOLD, 4 PORT * Used *[id number] 10:21 [employer] OMNIPAQUE, 350 MG, 150ML 150ML [id number] Used [id number] 10:21 [employer] BLANKET,WARM AIR CCL * Used *[id number] SHEATH, FR6 TRANSRADIAL [id number] 10:21 [employer] MEDICAL FR 6 Used SLENDER 10CM *[id number] History: Current Medications Medication Dosage/Unit Route Frequency Last Date/Time Taken LISINOPRIL History: Allergies Allergy Reaction No Known Allergies History: Risk Factors Family History of Hypertension Dyslipidemia Previous MN Previous Heart Failure Premature CAD Yes No No No No Prior Valve Prior PCI Prior CABG Surgery No No No Cerebrovascular Peripheral Artery Chronic Lung On Dialysis Diabetes Disease Disease Disease No No No No No History: Symptoms/Diagnosis Selection Items Palpitations History: Stress Tests Stress or Imaging Studies Performed No History: Arrhythmias Selection Items PVC's History: Other Current Smoker No Labs Hgb (g/dl) Hct (%) WBC (l/cumm) Platelets (thousands) 11.60-17.00 35.00-51.00 4.00-11.00 150.00-450.00 14.4 42 8.6 205 Glucose (mg/dl) BUN (mg/dl) Creatinine (mg/dl) BUN:Creatinine (1:x) 74.00-106.00 7.00-18.00 0.50-1.30 10.00-20.00 81 8 0.7 11.4 Na (meq/l) K (meq/l) 136.00-145.00 3.50-5.10 142 3.7 INR (PTT:PT) 0.90-1.10 1 Troponin I (ng/ml) CPK-MB (ng/ML) 0.02-0.05 0.50-3.60 0.71 Not Drawn Medication Medication Total Dose (Bolus/Oral) Medication Total Dosage/Unit 1% XYLOCAINE 20 mL FENTANYL 50 mcg RADIAL COCKTAIL 5 mL (Bolus) VERSED 2 mg Medications (Bolus/Oral) Medication Time Given Dosage/Unit Administered By Reason VERSED 11/07/2016 10:15:46 AM 2 mg Yenifer Chambers 2 mg VERSED given in lab by Yenifer Chambers, ZINA in Left Hand via Peripheral IV. Ordered by Arpit Youssef. FENTANYL 11/07/2016 10:16:08 AM 50 mcg Yenifer Chambers 50 mcg FENTANYL given in lab by Yenifer Chambers, ZINA in Left Hand via Peripheral IV. Ordered by Arpit Qiu. 1% XYLOCAINE 11/07/2016 10:18:30 AM 20 mL Arpit Ellis 20 mL 1% XYLOCAINE given in lab by Arpit Ellis in Right Radial via Subcutaneous. Ordered by Arpit Wiggins. Ntg 200mcg Verapamil 2.5mg Heparin RADIAL COCKTAIL 11/07/2016 10:19:45 AM 5 mL (Bolus) Arpit Ellis 2500U 5 mL (Bolus) RADIAL COCKTAIL given in lab by Arpit Ellis in Right Radial via Radial. Using [Mary ution Name]. Ordered by Arpit Ellis. Reason: Ntg 200mcg Verapamil 2.5mg Heparin 2500U. Medication (Drip) Medication Time Given Dosage/Unit Concentration/Unit Diluent (ml) Solution IV Solutions 11/07/2016 9:45:38 AM 0 mL (IV) 500 NaCl .9 Patient arrived on IV Solutions in Left Hand via Peripheral IV. Pump/Drip Flow = 20 ml/hr using NaCl .9. Initial Case Assessment Cardiovascular HR Rhythm NIBP Chest Pain 50 sb 147/68 0 Circulatory - Right Pulses Dorsalis Pedis Femoral Radial 2 2 2 Scale (0,1,2,3,4,d) Circulatory - Left Pulses Dorsalis Pedis Femoral Radial 2 2 Scale (0,1,2,3,4,d) Neurological State Oriented to time-place- Alert Moves all extremities person Respiration - General Respiration Rate SpO2 (%) (B/min) 12 98 Final Case Assessment Cardiovascular HR Rhythm NIBP Chest Pain 55 sb 111/64 0 Circulatory - Right Pulses Dorsalis Pedis Femoral Radial 2 2 2 Scale (0,1,2,3,4,d) Circulatory - Left Pulses Dorsalis Pedis Femoral Radial 2 2 Scale (0,1,2,3,4,d) Neurological State Oriented to time-place- Alert Moves all extremities person Respiration - General Respiration Rate SpO2 (%) (B/min) 13 94 Chronological Log Time Study Chronological Log 9:45:26 Patient arrived via Bed. 9:45:27 Patient Name, D.O.B, / Armband Verified By R.N. 9:45:28 Consent signed by the physician and the patient and verified by the Clarifier Operator Helper staff. 9:45:29 Pre-op and post- op instructions given; patient acknowledges understanding of instructions. 9:45:29 Verbal Stimulation=2 Physical Stimulation=2 Airway=2 Respiration=2 TOTAL=8. (0=absent, 1=galloway ited, 2=present) 9:45:31 Allens test performed on the right radial and ulnar artery. 9:45:32 Patient has been NPO for Less than 6Hrs. 9:45:33 Skin Breakdown-scabs noted on RFA 9:45:35 Patient Warmer Placed on the Table. 9:45:37 A # 20 IV was noted in the Hand (left). Grade = patent 9:45:38 Patient arrived on IV Solutions in Left Hand via Peripheral IV. Pump/Drip Flow = 20 ml/hr us ing NaCl .9. 9:45:39 History and physical on the chart or being dictated. Assessment: Initial Case, HR=50 BPM, Rhythm=sb, OGZE=927/68 mmhg, Chest Pain=0 Right Pulses: Kye Ped=2, Femoral=2, Radial=2 9:45:39 Left Pulses: Kye Ped=2, Femoral=2 Neurological: State=Alert, Ox3, TRAVIS Respiration: Resp=12 B/min, SpO2=98 % Vitals capture started with the following parameters, Patient=Adult, Interval=5 min, Initial Pr ydgaaa=119 mmHg, 9:53:56 Deflation Rate=5 mmHg 9:55:02 HR=58 bpm, HZZU=915/68 mmhg, SpO2=99.0 %, Resp=12 B/min, Pain=0, Shon=10, Gaspar=2 9:58:43 Reference ECG taken 9:59:34 HR=53 bpm, NBXZ=800/76 mmhg, SpO2=99.0 %, Resp=12 B/min, Pain=0, Shon=10, Gaspar=2 10:04:33 HR=50 bpm, PAZM=094/76 mmhg, SpO2=99.0 %, Resp=20 B/min, Pain=0, Shon=10, Gaspar=2 10:04:49 Right groin and right wrist prepped with 2% chlorhexidine, and draped after a 3 min. waitin g time. 10:08:58 Pressure channel 1 zeroed. 10:09:32 HR=55 bpm, IUWL=842/76 mmhg, SpO2=99.0 %, Resp=16 B/min, Pain=0, Shon=10, Gaspar=2 10:13:25 MD paged 10:14:33 HR=54 bpm, BNQW=160/75 mmhg, SpO2=99.0 %, Resp=11 B/min, Pain=0, Shon=10, Gaspar=2 10:15:46 2 mg VERSED given in lab by Yenifer Chambers, RN in Left Hand via Peripheral IV. Ordered Arpit Graham. 50 mcg FENTANYL given in lab by Yenifer Chambers, RN in Left Hand via Peripheral IV. Ordered dmitry Ellis, 10:16:08 Arpit. 10:16:58 MD arrived. Time Out. Correct patient, correct procedure,correct physician, power injector not loaded with contrast with surgical 10:17:59 team present. Time Out Concurred by MD and individual staff in procedure 10:18:27 Case Start 20 mL 1% XYLOCAINE given in lab by Arpit Ellis in Right Radial via Subcutaneous. Ordered by Rhonda, 10:18:30 Arpit. 10:18:58 Access site was Radial Artery. Right A SHEATH, FR6 TRANSRADIAL SLENDER 10CM FR 6 was advanced into the Radial (right) using the Perc utaneous 10::29 technique. 10:19:36 HR=59 bpm, BAID=323/61 mmhg, SpO2=96 %, Resp=16 B/min, Shon=10 5 mL (Bolus) RADIAL COCKTAIL given in lab by Arpit Ellis in Right Radial via Radial. Usin g [Solution Name]. 10:19:45 Ordered by Arpit Ellis. Reason: Ntg 200mcg Verapamil 2.5mg Heparin 2500U. A JR 4.0 INFINITI CATHETER FR 5 was advanced over a wire. OMNIPAQUE, 350 MG, 150ML 150ML was us ed for 10:19:49 injections. Recorded Pressure: LV, HR=58, Condition=Condition 1 10:20:50 (Left Ventricle) LV 101/1/4 10:21:11 The LV was manually injected with 10 cc's and visualized. OMNIPAQUE, 350 MG, 150ML 150ML u sed. Recorded Pressure: LV, Ao, HR=63, Condition=Condition 1 10:21:32 (Left Ventricle) LV 108/1/1, (Aorta) Ao 107/65/81 10:22:45 The RCA was injected and visualized at various angles. OMNIPAQUE, 350 MG, 150ML 150ML use d. After removing the current catheter a JL 3.5 INFINITI CATHETER FR 5 was advanced over a WIRE, 3MMJ .035 180CM 10:22:54 180CM. 10:23:37 The LCA was injected and visualized at various angles. OMNIPAQUE, 350 MG, 150ML 150ML use d. 10:24:28 Catheter was removed 10:24:31 HR=48 bpm, NQUB=306/53 mmhg, SpO2=95.0 %, Resp=13 B/min 10:25:01 Case End 10:29:30 HR=57 bpm, GISG=966/64 mmhg, SpO2=94.0 %, Resp=15 B/min, Pain=0, Shon=10, Gaspar=2 Radial Compression Device Used. 11 mLs of air placed in BAND, RADIAL COMPRESSION TR SHORT 24 2 4CM. Affected 10:30:49 hand 94 % O2 saturation. 10:31:11 No case complications noted. 10:31:12 Cine recording checked. 10:31:13 Bedside Report will be given. 10:31:23 A Left Heart Cath was performed. Assessment: Final Case, HR=55 BPM, Rhythm=sb, HDPE=451/64 mmhg, Chest Pain=0 Right Pulses: Kye Ped=2, Femoral=2, Radial=2 10:31:43 Left Pulses: Kye Ped=2, Femoral=2 Neurological: State=Alert, Ox3, TRAVIS Respiration: Resp=13 B/min, SpO2=94 % 10:36:00 Patient moved to bed 10:36:25 Patient transported to [facility] End Study - Contrast Media Used In Study Contrast Total Opened (mL) Total Used (mL) Total Wasted (mL) Omnipaque 30 30 0 End Study - Maximum Contrast Load Max Contrast Load (mL) 407.1 End Study - Radiation Exposure Fluoro Time (minutes) 2.1 End Study - Sheaths Sheaths Pulled By Sheath Hold Time (min) Magnus Covarrubias End Study - Patient Disposition Complications Transferred To Telemetry Bed
--- NOTE | 2016-11-07 11:28 | MA ---
cc: BOB LOPEZ DATE OF 1965 DATE OF PROCEDURE November 07, 2016. PROCEDURE PERFORMED 1. Left heart catheterization. 2. Selective right and left coronary angiography. 3. Left ventriculogram. INDICATION [id number] DC. PROCEDURE DESCRIPTION Consent signed. The patient was brought into the cardiac computer lab aide in fasting state. The right wrist was prepped and draped in sterile fashion. Using 1% lidocaine for local anesthesia and a micropuncture kit, a 6-Tamazight sheath was inserted into the right radial artery. Antispasmodic cocktail given, then selective right and left coronary angiography was performed with a JR-4 and JL-3.5 diagnostic catheters. This was followed by the JR-4 catheter introduced to the ventricle over a wire, followed by pressure recordings, left ventriculogram and pullback. The patient tolerated the procedure well without complications. ESTIMATED BLOOD LOSS Less than 30 cc. TOTAL CONTRAST USED 75 cc. CLOSURE The right radial access site was closed with a TR band. RESULTS LEFT VENTRICLE The left ventricular pressure was 108/1 with an LVEDP of 1. The aortic pressure was 107/65 with a mean of 81. There was no gradient upon pullback from the left ventricle to the aorta. Left ventriculogram revealed a symmetrically edith ventricle with an estimated ejection fraction of 50%. ANGIOGRAPHIC RESULTS 1. RIGHT CORONARY ARTERY: The right coronary artery is a dominant vessel giving off the PDA. This vessel is patent with OSMANY-3 flow and nonobstructive coronary artery disease. 2. LEFT MAIN: The left main is patent with OSMANY-3 flow. 3. LAD: The LAD is a transapical vessel and has nonobstructive coronary artery disease. It is giving off three diagonal vessels which are all patent with OSMANY-3 flow and nonobstructive coronary artery disease. 4. LEFT CIRCUMFLEX ARTERY: Patent with OSMANY-3 flow. Nonobstructive coronary artery disease giving off four OM vessels which are all patent with OSMANY-3 flow. 5. RAMUS VESSEL: There is a ramus vessel which is small and patent with OSMANY-3 flow. CONCLUSION 1. Nonobstructive coronary artery disease. 2. Preserved LV systolic function. RECOMMENDATIONS The patient will go back to the [facility] for post-cath care. The patient has nonobstructive coronary artery disease and preserved LV systolic function. Troponin elevation most likely in the setting of the atrial fibrillation with rapid vesicular response and should be treated accordingly. MD JOSE Farley/STANLEY /10:29 AM /11:14 AM KWAKU
--- NOTE | 2016-11-07 11:28 | MB ---
cc: BOB LOPEZ DATE OF CONSULTATION: 11/07/2016 1965 REASON FOR CONSULTATION Elevated troponins. HISTORY OF PRESENT ILLNESS 51-year-old female with cardiac medical history significant for high blood pressure, that presented to the hospital with symptoms of sustained fluttering on her chest, mild lightheadedness and anterior neck tightness that lasted about an hour. In the emergency department EKG showed atrial fibrillation with borderline ventricular response and nonspecific ST changes. She was consulted to cardiology for elevated troponins. She was started on heparin drip, statins and low-dose beta blockers and aspirin. Echocardiogram showed preserved LV systolic function with mild aortic and moderate mitral regurgitation. The patient has been consulted to interventional cardiology for left heart cath and possible PCI. Currently the patient remains well, she denies chest pain, shortness of breath, syncope, dizziness, bleeding issues, PND or leg edema. REVIEW OF SYSTEMS Negative except for what is mentioned in HPI. PAST MEDICAL HISTORY 1. PACs. 2. Migraine headaches. 3. Questionable TIA. 4. Hypertension. ALLERGIES NO KNOWN DRUG ALLERGIES. PAST SURGICAL HISTORY None. MEDICATION Home medications: 1. Lisinopril 10 mg p.o. daily. 2. Atenolol 25 mg p.o. daily FAMILY HISTORY Noncontributory. SOCIAL HISTORY The patient is a . She denies illicit drug use or smoking. PHYSICAL EXAMINATION VITAL SIGNS: Temperature 98, respiratory rate 17, pulse 62, blood pressure 134/ 81, O2 sat 96% on room air. GENERAL: She is awake, alert, oriented x3, in no acute distress. NECK: No JVD, no carotid bruits. HEART: Regular rate and rhythm. No murmurs, rubs or gallops. LUNGS: Clear to auscultation bilaterally. No rhonchi or wheezes or rales. ABDOMEN: Soft, nontender, nondistended. Positive bowel sounds. EXTREMITIES: No cyanosis or edema. Pulses throughout. LABORATORY DATA CBC hemoglobin 14, hematocrit 42, platelet count 205, INR 1. Chemistries sodium 142, potassium 3.7, creatinine 0.78, BUN 8, troponin 0.03, 0.96 and 0.71, triglycerides 77, cholesterol 239, LDL 156, HDL 67. IMAGING STUDIES Chest x-ray: There is no acute cardiopulmonary process. EKG Atrial fibrillation with diffuse nonspecific ST changes in the anterior lateral leads. ECHOCARDIOGRAM Preserved systolic function with mild aortic and moderate mitral regurgitation. ASSESSMENT/PLAN 51-year-old female with cardiac risk factors that include hypertension, hyperlipidemia, admitted with new atrial fibrillation with rapid ventricular response and she also has elevated troponins. She remains afebrile and hemodynamically stable. It is possible that the elevated troponin can be due to the atrial fibrillation with RVR, however ischemia needs to be ruled out. Thus, I recommend to do a left heart cath for CAD risk stratification. The risks and benefits of left heart cath include but not limited to bleeding, infection, acute kidney injury, neurovascular trauma, stroke, emergent bypass surgery and have been explained to the patient. The patient understands the risks and she is willing to proceed. RECOMMENDATIONS -Keep n.p.o. for left heart cath today. -Continue aggressive medical management for ACS. Thank you for the opportunity to participate in the care of this patient Further management to be determined. MD JOSE Farley/TLL /9:42 AM /11:10 AM KWAKU
[2016-11-07] MEDS: DABIGATRAN ETEXILATE 150 MG CAP PO SCH ×2 (11:36→21:27)
[2016-11-07] MEDS ORDERED: BACITRACIN OINT 0.9 GM PKT ONE (13:28)
[2016-11-07] MEDS ORDERED: IOHEXOL 350 MG/ML 50 ML BTL (for Cath Lab) OTHER ONE (14:44)
--- NOTE | 2016-11-07 16:40 | HHI.PR ---
Subjective Remarks Patient feels well. Denies any chest pain, shortness of breath, nausea or vomiting. She hopes to go home tomorrow. Objective Vitals Vital Signs Date Time Temp Pulse Resp B/P Pulse Ox O2 Delivery O2 Flow Rate FiO2 11/07/16 16:00 51 11/07/16 15:00 98.5 58 17 110/56 98 11/07/16 15:00 53 11/07/16 14:00 53 11/07/16 13:00 54 11/07/16 12:00 46 11/07/16 11:00 98.6 52 17 121/66 96 11/07/16 11:00 53 11/07/16 10:50 98.6 52 17 121/66 96 11/07/16 09:00 62 11/07/16 08:00 85 11/07/16 07:30 98.6 51 17 134/81 96 11/07/16 07:00 51 11/07/16 06:00 48 11/07/16 05:00 55 11/07/16 04:00 49 11/07/16 03:00 98.8 56 18 123/86 98 11/07/16 03:00 46 11/07/16 02:00 46 11/07/16 01:00 48 11/07/16 00:00 53 11/06/16 23:00 62 11/06/16 23:00 99.0 64 18 135/79 98 11/06/16 22:00 60 11/06/16 21:00 80 11/06/16 20:00 64 11/06/16 19:00 99.4 60 18 118/71 97 11/06/16 19:00 63 11/06/16 18:12 74 11/06/16 17:07 51 I/O 11/06/16 11/06/16 11/06/16 11/07/16 11/07/16 11/07/16 06:59 14:59 22:59 06:59 14:59 22:59 Intake Total 1000 ml 561 ml 480 ml Output Total 1100 ml 300 ml Balance 1000 ml -539 ml 180 ml Intake Oral 240 ml 480 ml IV Total 1000 ml 321 ml Output Urine Total 1100 ml 300 ml # Voids 1 # Bowel Movements 0 Result Diagram: 11/06/16 0610 11/07/16 0455 Imaging Last Impressions Chest X-Ray 11/05/16 3672 Signed Impressions: Service Date/Time: Saturday, November 05, 2016 18:59 - CONCLUSION: No acute cardiopulmonary disease. Hipolito Roblero MD Objective Remarks GENERAL: This is a well-nourished, well-developed patient, sitting up in chair EYES:Extraocular motions intact. ENT: Trachea midline Airway patent. CARDIOVASCULAR: Bradycardic without murmurs RESPIRATORY: Clear to auscultation. Breath sounds equal bilaterally. No wheezes GASTROINTESTINAL: Abdomen soft, non-tender, nondistended. MUSCULOSKELETAL: Extremities without edema. Dressing over the right forearm NEUROLOGICAL: Awake and alert. Cranial nerves II through XII intact. Motor and sensory grossly within normal limits. Normal speech. PSYCH: Mood and affect appropriate. A/P Assessment and Plan NSTEMI The patient was found to have elevated troponin level of 0.96. She did not have any chest pain but did have palpitations. EKG did reveal atrial fibrillation, rate controlled. The patient likely had A. fib with RVR prior to coming to the hospital which would explain the elevated troponin. -Status post cardiac catheter showing nonobstructive CAD with preserved LV function. Postop day 0. Patient was started onpradaxa and is on aspirin as well. - Cardiology following - Continue to Monitor on telemetry. Afib/ Palpitations The patient has been told she has a history of irregular heartbeats and PVCs. EKG showed atrial fibrillation. -Cardiology following. Currently on atenolol. Heart rate is controlled at this time. Hyponatremia Resolved Hypertension The patient says she was prescribed lisinopril because she has high blood pressure in settings like the hospital, but at home she says her blood pressure runs low. She has not been taking her lisinopril. Blood pressure currently well controlled. - d/c lisinopril. -Back on atenolol dvt proph: pradaxa Discharge Planning Anticipate discharge in Kyleigh Huff MD Nov 07, 2016 16:40
[2016-11-08] VITALS (18 sets, daily range): BP systolic 123–154; BP diastolic 78–92; PULSE 44–71; RESP 16–18; TEMP 98.2–98.6; O2SAT 96–98
[2016-11-08] MEDS: SODIUM CHLOR 0.9% 1000 ML INJ 1,000 ML IV SCH (07:55)
[2016-11-08] MEDS: DABIGATRAN ETEXILATE 150 MG CAP PO SCH (08:41)
[2016-11-08] MEDS: DOCUSATE SODIUM 50 MG/SENNA 8.6 MG TAB PO SCH (08:42)
[2016-11-08] MEDS: ATENOLOL 25 MG TAB PO SCH (08:42)
[2016-11-08] MEDS: ATORVASTATIN 40 MG TAB PO SCH (08:42)
[2016-11-08] MEDS: SODIUM CHLORIDE 0.9% FLUSH 10 ML FLUSH IV FLUSH SCH (08:43)
[2016-11-08] MEDS ORDERED: ASPIRIN EC 81 MG TABEC PO SCH (09:00)
[2016-11-08] MEDS ORDERED: PRAD150C PO (11:26)
[2016-11-08] MEDS ORDERED: LISI10TA3 PO (11:26)
[2016-11-08] MEDS ORDERED: ASPI-99 PO (11:26)
[2016-11-08] MEDS ORDERED: ATOR40TA16 PO (11:26)
[2016-11-08] MEDS ORDERED: ATEN25TA PO (11:26)
--- NOTE | 2016-11-08 11:30 | HHI.DS ---
Discharge Summary Admission Date Nov 06, 2016 at 08:19 Discharge Date: Nov 08, 2016 Admitting Diagnosis new onset atrial fibrillation (1) Atrial fibrillation ICD Code: I48.91 Diagnosis: Principal (2) HTN (hypertension) ICD Code: I10 Diagnosis: Principal Procedures cardiac cath Brief History - From Admission The patient is a 51-year-old female with a history of irregular heart beat who is presenting to the hospital with palpitations. She said that yesterday afternoon she was biking when all of a sudden she felt the palpitations hit. She felt her heart beating hard and fast and she also associated a brief episode of lightheadedness associated with that. She said the palpitations seem like it went up to her throat. She says she has had palpitations before but not quite as severely as this. She did not have any associated chest pain or shortness of breath. She did have a brief queasy sensation. She says she still feels the palpitations every once in a while. She says she was told she has an irregular heartbeat with PVCs. She does not endorse much of an appetite. She denies any recent fevers. CBC/BMP: 11/06/16 0610 11/07/16 0455 Significant Findings Laboratory Tests Test 11/05/16 11/06/16 11/06/16 11/06/16 19:05 06:10 12:27 15:54 Red Blood Count 5.39 MIL/MM3 (4.00-5.30) Hemoglobin 15.7 GM/DL (11.6-15.3) Hematocrit 47.6 % (35.0-46.0) Mean Platelet Volume 6.8 FL 6.7 FL (7.0-11.0) (7.0-11.0) Neutrophils (%) (Auto) 76.4 % 80.0 % (16.0-70.0) (16.0-70.0) Basophils (%) (Auto) 4.4 % (0.0-2.0) 3.5 % (0.0-2.0) Lymphocytes # (Auto) 0.9 TH/MM3 (1.0-4.8) Basophils # (Auto) 0.3 TH/MM3 0.3 TH/MM3 (0-0.2) (0-0.2) Activated Partial 31.0 SEC 46.5 SEC Thromboplast Time (24.3-30.1) (24.3-30.1) Sodium Level 128 MEQ/L 130 MEQ/L (136-145) (136-145) Chloride Level 94 MEQ/L (98-107) Estimat Glomerular Filtration 65 ML/MIN (>89) Rate Calcium Level 8.2 MG/DL (8.5-10.1) Troponin I 0.96 NG/ML 0.71 NG/ML (0.02-0.05) (0.02-0.05) Total Protein 6.1 GM/DL (6.4-8.2) Albumin 3.0 GM/DL (3.4-5.0) Cholesterol Level 239 MG/DL (120-200) LDL Cholesterol 156 MG/DL (0-99) HDL Cholesterol 67.3 MG/DL (40.0-60.0) Test 11/06/16 11/07/16 22:15 04:55 Activated Partial 41.8 SEC 48.5 SEC Thromboplast Time (24.3-30.1) (24.3-30.1) Chloride Level 109 MEQ/L (98-107) Estimat Glomerular Filtration 78 ML/MIN (>89) Rate Imaging Last Impressions Chest X-Ray 11/05/16 4175 Signed Impressions: Service Date/Time: Saturday, November 05, 2016 18:59 - CONCLUSION: No acute cardiopulmonary disease. Hipolito Roblero MD PE at Discharge GENERAL: This is a well-nourished, well-developed patient, sitting up in chair EYES:Extraocular motions intact. ENT: Trachea midline Airway patent. CARDIOVASCULAR: Bradycardic without murmurs RESPIRATORY: Clear to auscultation. Breath sounds equal bilaterally. No wheezes GASTROINTESTINAL: Abdomen soft, non-tender, nondistended. MUSCULOSKELETAL: Extremities without edema. Dressing over the right forearm NEUROLOGICAL: Awake and alert. Cranial nerves II through XII intact. Motor and sensory grossly within normal limits. Normal speech. PSYCH: Mood and affect appropriate. Pt update on day of discharge Pt feeling well. She denies any chest pain, palpitation, shortness of breath, nausea or vomiting. She is eager to go home. Hospital Course NSTEMI The patient was found to have elevated troponin level of 0.96. She did not have any chest pain but did have palpitations. EKG did reveal atrial fibrillation, rate controlled. The patient likely had A. fib with RVR prior to coming to the hospital which would explain the elevated troponin. -Status post cardiac catheter showing nonobstructive CAD with preserved LV function. Postop day 1. Patient was started onpradaxa and is on aspirin as well. - Cardiology cleared patient for discharge. Afib/ Palpitations The patient has been told she has a history of irregular heartbeats and PVCs. EKG showed atrial fibrillation. -Cardiology following. Currently on atenolol. Heart rate is controlled at this time. Hypertension The patient says she was prescribed lisinopril because she has high blood pressure in settings like the hospital, but at home she says her blood pressure runs low. She has not been taking her lisinopril. However, atenolol dose has been decreased and blood pressure on the elevated side. We'll resume lisinopril as an outpatient. Patient to follow-up with her primary care doctor for blood pressure control and adjustment to her medications. Pt Condition on Discharge: Stable Discharge Disposition: Discharge Home Discharge Time: > 30 minutes Discharge Instructions DIET: Follow Instructions for: Heart Healthy Diet Activities you can perform: Regular-No Restrictions Follow up Referrals: Cardiology - 2 Weeks PCP Follow-up - 1 Week New Medications: Aspirin DR (Adult Aspirin EC Low Strength) 81 Mg Tabec 81 MG PO DAILY Days 30 TAB Atenolol (Atenolol) 25 Mg Tab 12.5 MG PO DAILY Days 30 TAB Atorvastatin (Atorvastatin) 40 Mg Tab 40 MG PO DAILY Days 30 TAB Dabigatran (Pradaxa) 150 Mg Cap 150 MG PO BID Days 30 CAP Continued Medications: Lisinopril (Lisinopril) 10 Mg Tab 10 MG PO DAILY Blood Pressure Management Days 30 TAB (This prescription has been renewed) Discontinued Medications: Atenolol (Atenolol) 25 Mg Tab 25 MG PO DAILY Blood Pressure Management #30 TAB Kyleigh Pathak MD Nov 08, 2016 11:30
== END 2016-11-08 15:47 | disposition home or self-care (01) | DRG 281 ==
LOC: PHED 18:29 → PHEDA 20:02 → PHEDH 11-06 02:27 → OBSVTOIN 11-06 08:19 → HCIN 11-06 13:10
PROVIDERS: ADMIT Hospitalist; ATTEND Hospitalist
PROC: B2111ZZ Fluoroscopy of Multiple Coronary Arteries using Low Osmolar Contrast (ICD-10-PCS; 2016-11-07)
PROC: B2151ZZ Fluoroscopy of Left Heart using Low Osmolar Contrast (ICD-10-PCS; 2016-11-07)
PROC: 4A023N7 Measurement of Cardiac Sampling and Pressure, Left Heart, Percutaneous Approach (ICD-10-PCS; principal; 2016-11-07 09:45)
DX: I48.91 Unspecified atrial fibrillation (principal); I21.4 Non-ST elevation (NSTEMI) myocardial infarction; E87.1 Hypo-osmolality and hyponatremia; I10 Essential (primary) hypertension; I08.0 Rheumatic disorders of both mitral and aortic valves; Z59.9 Problem related to housing and economic circumstances, unspecified; G43.909 Migraine, unspecified, not intractable, without status migrainosus; E78.5 Hyperlipidemia, unspecified; I25.10 Atherosclerotic heart disease of native coronary artery without angina pectoris; R00.1 Bradycardia, unspecified
CPT/HCPCS: 71020; 80048; 80053; 80061; 83735; 83880; 84443; 84484; 85025; 85610; 85730; 93005; 93306; 93458; 96360; C1769; C1893; G0378; J1644; J2250; J3010; J7030; Q9967

== ENCOUNTER 2016-11-21 20:45 | Inpatient (IN) | payer OTHER ==
[~2016-11-21] VITALS: Ht 157.5 cm; Wt 56.4 kg
[~2016-11-21 20:45] MED LIST changes: +APIX5TAB PO; +ASPI-99 PO; +ATOR40TA16 PO
[2016-11-21 20:51] VITALS: BP 162/74; PULSE 54; RESP 12; TEMP 98.9; O2SAT 99
--- NOTE | 2016-11-21 21:08 | PD ---
HPI Chief Complaint: Cardiac Complaint Time Seen by Provider: 21:03 Travel History International Travel<30 days: No Contact w/Intl Traveler<30days: No Traveled to known affect area: No History of Present Illness HPI ONSET OF PALPITATIONS ABOUT 2HRS AGO, PATIENT CHECKED HER BP WHICH WAS 160/90 WHICH IS VERY HIGH FOR HER, DECIDED TO COME IN AND BE EVALUATED. PATIENT RECENTLY DX WITH AFIB, ANTICOAG ON ELIQUIS, DENIES CP. PFSH Past Medical History Blood Disorders: No Heart Rhythm Problems: Yes (ARRHYTHMIA) Cancer: No Cardiovascular Problems: Yes (IRREGULAR HEART RATE SPORADICALLY) High Cholesterol: No Chest Pain: No Congestive Heart Failure: No Diminished Hearing: No Endocrine: No Genitourinary: No Headaches: Yes Immune Disorder: No Musculoskeletal: No Neurologic: No Psychiatric: No Reproductive: No Respiratory: No Social History Alcohol Use: No Tobacco Use: No Substance Use: No Allergies-Medications (Allergen,Severity, Reaction): Coded Allergies: No Known Allergies (Unverified , 11/21/16) Reported Meds & Prescriptions Reported Meds & Active Scripts Active Eliquis (Apixaban) 5 Mg Tab 5 Mg PO BID Atorvastatin (Atorvastatin Calcium) 40 Mg Tab 40 Mg PO DAILY Atenolol 25 Mg Tab 12.5 Mg PO DAILY Lisinopril 10 Mg Tab 10 Mg PO DAILY Adult Aspirin EC Low Strength (Aspirin) 81 Mg Tabec 81 Mg PO DAILY 30 Days Review of Systems Except as stated in HPI: all other systems reviewed are Neg HENT: Positive: Lightheadedness Cardiovascular: Positive: Palpitations Physical Exam Narrative GENERAL: SKIN: Warm and dry. HEAD: Atraumatic. Normocephalic. EYES: Pupils equal and round. No scleral icterus. No injection or drainage. ENT: No nasal bleeding or discharge. Mucous membranes pink and moist. NECK: Trachea midline. No JVD. CARDIOVASCULAR: IRREGULARLY IRREGULAR RHYTHM, RESPIRATORY: No accessory muscle use. Clear to auscultation. Breath sounds equal bilaterally. GASTROINTESTINAL: Abdomen soft, non-tender, nondistended. MUSCULOSKELETAL: Extremities without clubbing, cyanosis, or edema. No obvious deformities. NEUROLOGICAL: Awake and alert. No obvious cranial nerve deficits. Motor grossly within normal limits. Five out of 5 muscle strength in the arms and legs. Normal speech. PSYCHIATRIC: Appropriate mood and affect; insight and judgment normal. Data Data Last Documented VS Vital Signs Date Time Temp Pulse Resp B/P Pulse Ox O2 Delivery O2 Flow Rate FiO2 11/21/16 22:58 50 16 135/78 97 Room Air 11/21/16 21:09 98.9 Orders Electrocardiogram (11/21/16 21:03) B-Type Natriuretic Peptide (11/21/16 21:03) Ckmb (Isoenzyme) Profile (11/21/16 21:03) Complete Blood Count With Diff (11/21/16 21:03) Comprehensive Metabolic Panel (11/21/16 21:03) Prothrombin Time / Inr (Pt) (11/21/16 21:03) Act Partial Throm Time (Ptt) (11/21/16 21:03) Troponin I (11/21/16 21:03) Chest, Single Ap (11/21/16 21:03) Ecg Monitoring (11/21/16 21:03) Bilateral Bp Monitoring (11/21/16 21:03) Iv Access Insert/Monitor (11/21/16 21:03) Oximetry (11/21/16 21:03) Oxygen Administration (11/21/16 21:03) Sodium Chloride 0.9% Flush (Ns Flush) (11/21/16 21:15) Clonidine (Catapres) (11/21/16 21:15) CKMB (11/21/16 21:35) CKMB% (11/21/16 21:35) Sodium Chlor 0.9% 1000 Ml Inj (Ns 1000 M (11/21/16 22:39) Sodium Chlor 0.9% 1000 Ml Inj (Ns 1000 M (11/21/16 22:39) Labs Laboratory Tests Test 11/21/16 21:35 White Blood Count 7.3 TH/MM3 Red Blood Count 4.95 MIL/MM3 Hemoglobin 14.6 GM/DL Hematocrit 43.8 % Mean Corpuscular Volume 88.5 FL Mean Corpuscular Hemoglobin 29.4 PG Mean Corpuscular Hemoglobin 33.3 % Concent Red Cell Distribution Width 11.7 % Platelet Count 282 TH/MM3 Mean Platelet Volume 7.2 FL Neutrophils (%) (Auto) 76.8 % Lymphocytes (%) (Auto) 12.8 % Monocytes (%) (Auto) 6.4 % Eosinophils (%) (Auto) 1.5 % Basophils (%) (Auto) 2.5 % Neutrophils # (Auto) 5.6 TH/MM3 Lymphocytes # (Auto) 0.9 TH/MM3 Monocytes # (Auto) 0.5 TH/MM3 Eosinophils # (Auto) 0.1 TH/MM3 Basophils # (Auto) 0.2 TH/MM3 CBC Comment DIFF FINAL Differential Comment Prothrombin Time 11.5 SEC Prothromb Time International 1.0 RATIO Ratio Activated Partial 33.4 SEC Thromboplast Time Sodium Level 121 MEQ/L Potassium Level 4.4 MEQ/L Chloride Level 87 MEQ/L Carbon Dioxide Level 23.2 MEQ/L Anion Gap 11 MEQ/L Blood Urea Nitrogen 8 MG/DL Creatinine 0.76 MG/DL Estimat Glomerular Filtration 80 ML/MIN Rate Random Glucose 92 MG/DL Calcium Level 8.9 MG/DL Total Bilirubin 1.1 MG/DL Aspartate Amino Transf 28 U/L (AST/SGOT) Alanine Aminotransferase 18 U/L (ALT/SGPT) Alkaline Phosphatase 92 U/L Total Creatine Kinase 108 U/L Troponin I LESS THAN 0.02 NG/ML B-Type Natriuretic Peptide 63 PG/ML Total Protein 6.7 GM/DL Albumin 3.6 GM/DL [facility] Medical Decision Making Medical Screen Exam Complete: Yes Emergency Medical Condition: Yes Medical Record Reviewed: Yes Interpretation(s) SINUS BRADYCARDIA 50, J POINT ELEVATION, NO STEMI PATTERN. Differential Diagnosis AFIB WITH RVR V DEHYDRATION V ANEMIA V ELECTROLYTE ABNL Narrative Course D/W PATIENT THAT NO ACTIVE AFIB WAS FOUND, NO STEMI PATTERN NOR ANY ELEV TROPONIN, NO ANEMIA, HOWEVER DID FIND RATHER LOW SODIUM WITHOUT ANY DIURETIC NOR ANY GI LOSSES A CAUSATIVE FACTOR. WILL START HYDRATION AND ADMIT FOR OBSERVATION AND FURTHER REHYDRATION Diagnosis Primary Impression: Acute hyponatremia Admitting Information Admitting Physician Requests: Observation Remi Rust MD Nov 21, 2016 21:08
[2016-11-21 21:09] VITALS: BP 140/70; PULSE 51; RESP 18; TEMP 98.9; O2SAT 100
[2016-11-21 21:12] VITALS: RESP 18; O2SAT 100
[2016-11-21] MEDS ORDERED: SODIUM CHLORIDE 0.9% FLUSH 10 ML FLUSH IVF PRN (21:15)
[2016-11-21] MEDS ORDERED: cloNIDine HCL 0.1 MG TAB PO ONE (21:15)
[2016-11-21 21:37] VITALS: BP_SYST 147; BP_SYST 154; BP_DIAS 70; BP_DIAS 77
--- NOTE | 2016-11-21 21:58 | RADRPT ---
EXAM DATE/TIME: 11/21/2016 21:19 [place] COMPARISON: CHEST PA & LAT, November 05, 2016, 18:59. INDICATIONS : Chest pain. MEDICAL HISTORY : Irregular heartrate. SURGICAL HISTORY : None. ENCOUNTER: Initial ACUITY: 1 day PAIN SCORE: 0/10 LOCATION: Bilateral chest FINDINGS: A single view of the chest demonstrates the lungs to be symmetrically aerated without evidence of mas s, infiltrate or effusion. The cardiomediastinal contours are unremarkable. Osseous structures are intact. CONCLUSION: No evidence of acute cardiopulmonary disease. German Locke MD on November 21, 2016 at 21:57 Board Certified Radiologist. This report was verified electronically.
[2016-11-21 22:05] LABS: AUTOMATED NEUTROPHIL # 5.6 TH/MM3 (1.8-7.7); BASOPHIL # 0.2 TH/MM3 (0-0.2); BASOPHIL % 2.5 % (0.0-2.0); EOSINOPHIL # 0.1 TH/MM3 (0-0.4); EOSINOPHIL % 1.5 % (0.0-4.0); HEMATOCRIT 43.8 % (35.0-46.0); LYMPH % 12.8 % (9.0-44.0); LYMPHOCYTE # 0.9 TH/MM3 (1.0-4.8); MEAN CELL VOLUME 88.5 FL (80.0-100.0); MEAN CORPUSCULAR HEMOGLOBIN 29.4 PG (27.0-34.0); MEAN CORPUSCULAR HGB CONC 33.3 % (32.0-36.0); MONO % 6.4 % (0.0-8.0); NEUT % 76.8 % (16.0-70.0); PLATELET COUNT 282 TH/MM3 (150-450); RED BLOOD COUNT 4.95 MIL/MM3 (4.00-5.30); RED CELL DISTRIBUTION WIDTH 11.7 % (11.6-17.2); WHITE BLOOD COUNT 7.3 TH/MM3 (4.0-11.0)
[2016-11-21 22:07] LABS: APTT (PATIENT) 33.4 SEC (24.3-30.1); PROTHROMBIN TIME - PATIENT 11.5 SEC (9.8-11.6)
[2016-11-21 22:12] LABS: HEMO FLAGS DIFF FINAL
[2016-11-21 22:32] LABS: ALKALINE PHOSPHATASE 92 U/L (45-117); ALT (GPT) 18 U/L (10-53); ANION GAP 11 MEQ/L (5-15); AST (GOT) 28 U/L (15-37); BICARBONATE 23.2 MEQ/L (21.0-32.0); BLOOD UREA NITROGEN 8 MG/DL (7-18); CHLORIDE 87 MEQ/L (98-107); CREATINE KINASE 108 U/L (26-192); GLOMERULAR FILTRATION RATE 80 ML/MIN (>89); TOTAL BILIRUBIN ADULT 1.1 MG/DL (0.2-1.0)
[2016-11-21 22:36] LABS: POTASSIUM 4.4 MEQ/L (3.5-5.1)
[2016-11-21 22:37] LABS: SODIUM (NA) 121 MEQ/L (136-145)
[2016-11-21] MEDS ORDERED: SODIUM CHLOR 0.9% 1000 ML INJ 1,000 ML IV SCH ×2 (22:39)
[2016-11-21 22:58] VITALS: BP 135/78; PULSE 50; RESP 16; O2SAT 97
[2016-11-21 23:28] LABS: CKMB 1.4 NG/ML (0.5-3.6)
[2016-11-21] MEDS ORDERED: SODIUM CHLORIDE 0.9% FLUSH 10 ML FLUSH IV FLUSH PRN (23:30)
[2016-11-21] MEDS ORDERED: NALOXONE HCL 0.4 MG/ML AMP IV PRN (23:30)
[2016-11-21 23:59] VITALS: BP 132/74; PULSE 61; RESP 18; O2SAT 97
[2016-11-22] VITALS: BP 146/78; PULSE 84; RESP 18; TEMP 97.1; O2SAT 98
[2016-11-22 00:54] VITALS: BP 136/74; PULSE 51; RESP 18; O2SAT 97
[2016-11-22 01:05] VITALS: PULSE 48
[2016-11-22 04:00] VITALS: BP 142/76; PULSE 50; RESP 18; TEMP 98.6; O2SAT 98
--- NOTE | 2016-11-22 05:04 | EKG ---
Date Performed: 11/21/2016 Time Performed: 21:12:28 PTAGE: 51 years EKG: SINUS BRADYCARDIA POSSIBLE RIGHT VENTRICULAR CONDUCTION DELAY BORDERLINE ECG Compared to th e PREVIOUS TRACING Nonspecific T-wave changes have resolveed. PREVIOUS TRACIN11/05/2016 19.48 DOCTOR: Bhanu Telles Interpretating Date/Time 11/22/2016 05:03:25
[2016-11-22 05:31] LABS: BICARBONATE 22.6 MEQ/L (21.0-32.0)
[2016-11-22 08:00] VITALS: BP 130/80; PULSE 52; RESP 19; TEMP 97.3; O2SAT 97
[2016-11-22 08:14] LABS: POTASSIUM 3.9 MEQ/L (3.5-5.1)
[2016-11-22 08:17] LABS: BICARBONATE 24.2 MEQ/L (21.0-32.0)
[2016-11-22] MEDS ORDERED: SODIUM CHLORIDE 0.9% FLUSH 10 ML FLUSH IV FLUSH SCH (09:00)
--- NOTE | 2016-11-22 09:49 | HHI.HP ---
[facility] Eliana Silver MD Admission Diagnosis HYPONATREMIA, H/O AFIB Diagnoses: (1) Acute hyponatremia Diagnosis: Principal (2) Atrial fibrillation Diagnosis: Secondary Chief Complaint: Lightheaded, dizziness, elevated blood pressure Travel History International Travel<30 Days: No Contact w/Intl Traveler <30 Da: No Traveled to Known Affected Are: No History of Present Illness Written by Brian Dewey, acting as scribe for Dr. Francis on 11/22/16 at 09: 48. 51-year-old female with known history of atrial fibrillation, hyperlipidemia who presented to hospital because of palpitations and elevated blood pressure. Patient states that she is in normal state of health until yesterday when she started feeling some palpitations and she checked her blood pressure was 150/90, her blood pressure is never that high so she came to the hospital for evaluation. Patient denies any chest pain, nausea, vomiting, diarrhea, shortness of breath, dyspnea. Upon workup patient was found to have hyponatremia and is recommended that the patient be admitted for further evaluation management. Patient denies any diuretic use, nausea, vomiting, diarrhea. However she does indicate that she has been drinking excess amount of fluid over the last few days because it is been so hot out. She does ride her bike on a daily basis out in the heat. She states that she drank approximately 64 ounces of liquid yesterday. At the present time she is doing much better. Her sodium and clinical condition has significantly improved after IV hydration. Counseled patient extensively on fluid intake, electrolyte replacement since it is so hot out and she does ride her bike on a daily basis. Patient no longer experiencing any palpitations. Review of Systems Constitutional: COMPLAINS OF: Dizziness Cardiovascular: COMPLAINS OF: Palpitations Except as stated in HPI: all other systems reviewed are Neg Past Family Social History Past Medical History Atrial fibrillation Hyperlipidemia Past Surgical History Cardiac catheterization Reported Medications Reported Meds & Active Scripts Active Eliquis (Apixaban) 5 Mg Tab 5 Mg PO BID Atorvastatin (Atorvastatin Calcium) 40 Mg Tab 40 Mg PO DAILY Atenolol 25 Mg Tab 12.5 Mg PO DAILY Lisinopril 10 Mg Tab 10 Mg PO DAILY Adult Aspirin EC Low Strength (Aspirin) 81 Mg Tabec 81 Mg PO DAILY 30 Days Allergies: Coded Allergies: No Known Allergies (Unverified , 11/21/16) Family History Reviewed and noncontributory Social History Patient denies any tobacco, alcohol or illicit drugs Physical Exam Vital Signs Vital Signs Date Time Temp Pulse Resp B/P Pulse Ox O2 Delivery O2 Flow Rate FiO2 11/22/16 08:00 97.3 52 19 130/80 97 11/22/16 04:00 98.6 50 18 142/76 98 11/22/16 01:05 48 11/22/16 00:55 51 18 97 11/22/16 00:54 51 18 136/74 97 Room Air 11/22/16 00:00 97.1 84 18 146/78 98 11/21/16 23:59 61 18 132/74 97 Room Air 11/21/16 22:58 50 16 135/78 97 Room Air 11/21/16 21:37 154/77 147/70 11/21/16 21:12 51 18 100 Room Air 11/21/16 21:12 18 100 Room Air 11/21/16 21:12 100 Room Air 11/21/16 21:09 98.9 51 18 140/70 100 11/21/16 20:51 98.9 54 12 162/74 99 Physical Exam GENERAL: Well-developed, well-nourished, in no acute distress. alert and orientated HEENT: Head is normocephalic without any lesions or masses noted. Facial features are symmetric. Eyes: Pupils equal round reactive to light. Extraocular muscles are intact. Conjunctivae were clear. Oropharyngeal: Pharynx without any erythema edema. Tongue is midline without deviation. Buccal mucosa is moist without any masses or lesions NECK: Supple without any masses. Trachea midline no deviation. No JVD, no bruits are appreciated CARDIAC: Regular rhythm, regular rate. S1/S2 are heard. No murmurs gallops or rubs. LUNGS: Clear to auscultation bilaterally. No wheeze, rhonchi or rales. No use of accessory muscles on inspiration or expiration. ABDOMEN: Soft, nontender. Nondistended. Bowel sounds heard in all 4 quadrants. No organomegaly or masses. Negative rebound, negative guarding EXTREMITIES: No edema, pulses are equal bilaterally. No cyanosis or clubbing NEUROLOGY: Mood and affect appear appropriate. Cranial nerves II through XII grossly intact. Muscle strength 5/5 in upper and lower extremities bilaterally. Deep tendon reflexes are 2+ in upper and lower extremities bilaterally. Laboratory Laboratory Tests Test 11/21/16 11/22/16 11/22/16 21:35 03:30 08:00 White Blood Count 7.3 Red Blood Count 4.95 Hemoglobin 14.6 Hematocrit 43.8 Mean Corpuscular Volume 88.5 Mean Corpuscular Hemoglobin 29.4 Mean Corpuscular Hemoglobin 33.3 Concent Red Cell Distribution Width 11.7 Platelet Count 282 Mean Platelet Volume 7.2 Neutrophils (%) (Auto) 76.8 Lymphocytes (%) (Auto) 12.8 Monocytes (%) (Auto) 6.4 Eosinophils (%) (Auto) 1.5 Basophils (%) (Auto) 2.5 Neutrophils # (Auto) 5.6 Lymphocytes # (Auto) 0.9 Monocytes # (Auto) 0.5 Eosinophils # (Auto) 0.1 Basophils # (Auto) 0.2 CBC Comment DIFF FINAL Differential Comment Prothrombin Time 11.5 Prothromb Time International 1.0 Ratio Activated Partial 33.4 Thromboplast Time Sodium Level 121 128 132 Potassium Level 4.4 4.0 3.9 Chloride Level 87 98 102 Carbon Dioxide Level 23.2 22.6 24.2 Anion Gap 11 7 6 Blood Urea Nitrogen 8 7 7 Creatinine 0.76 0.65 0.69 Estimat Glomerular Filtration 80 96 89 Rate Random Glucose 92 92 85 Calcium Level 8.9 8.3 8.8 Total Bilirubin 1.1 Aspartate Amino Transf 28 (AST/SGOT) Alanine Aminotransferase 18 (ALT/SGPT) Alkaline Phosphatase 92 Total Creatine Kinase 108 Creatine Kinase MB 1.4 Troponin I LESS THAN 0.02 B-Type Natriuretic Peptide 63 Total Protein 6.7 Albumin 3.6 Thyroid Stimulating Hormone 3.070 3rd Gen Result Diagram: 11/21/16213411/22/16 0800 Imaging Last Impressions Chest X-Ray 11/21/162102 Signed Impressions: Service Date/Time: Monday, November 21, 2016 21:19 - CONCLUSION: No evidence of acute cardiopulmonary disease. German Locke MD Assessment and Plan Problem List: (1) Acute hyponatremia ICD Code: E87.1 Status: Acute Assessment and Plan Hyponatremia, improved Likely secondary to increased water intake as well as increased perspiration from outdoor physical exertion while riding bicycle Counseled patient extensively on fluid intake, electrolyte replacement Further studies with TSH was normal, serum osmolality was normal, awaiting urine sodium/osmolality Status post 2 L normal saline fluid Atrial fibrillation, now sinus rhythm, no recurrent palpitations Patient presented with palpitations which could be secondary to paroxysmal atrial fibrillation, possible electrolyte induced arrhythmia Followed by Dr. Cardozo in outpatient setting Continue atenolol, Eliquis Hyperlipidemia Resume statin DVT prevention Eliquis This note was transcribed by ronni Dewey. I, Dr. Camilo Francis personally performed the history, physical exam, and medical decision making; and confirmed the accuracy of the information in the transcribed note. Authenticated by Dr. Camilo Francis on 11/22/16 at 09:48. Discharge disposition Discharge home in stable condition Activity: Ad vic. Diet: Healthy heart diet, counseled patient on electrolyte supplementation Medications per medication reconciliation Follow-up of her medical doctor in one week Code Status Full code Discussed Condition With Patient Physician Certification 2 Midnight Certification Type: Admission for Inpatient Services Order for Inpatient Services The services are ordered in accordance with Medicare regulations or non- Medicare payer requirements, as applicable. In the case of services not specified as inpatient-only, they are appropriately provided as inpatient services in accordance with the 2-midnight benchmark. Estimated LOS (days): 1 days is the estimated time the patient will need to remain in the hospital, assuming treatment plan goals are met and no additional complications. Post-Hospital Plan: Home Brian Dewey Nov 22, 2016 09:48 Camilo Francis MD Nov 22, 2016 09:49
== END 2016-11-22 11:01 | disposition home or self-care (01) | DRG 641 ==
LOC: PHED 20:45 → PHEDA 23:26 → OBSVTOIN 23:26 → PH3A 11-22 00:44
PROVIDERS: ADMIT Hospitalist; ATTEND Hospitalist
DX: E87.1 Hypo-osmolality and hyponatremia (principal); I48.91 Unspecified atrial fibrillation; E78.5 Hyperlipidemia, unspecified; R03.0 Elevated blood-pressure reading, without diagnosis of hypertension; Z79.01 Long term (current) use of anticoagulants
CPT/HCPCS: 71010; 80048; 80053; 82550; 82552; 83880; 83930; 83935; 84300; 84443; 84484; 85025; 85610; 85730; 93005; J7030